=== PATIENT | male | born 1970 | race Caucasian/White ===

== ENCOUNTER → 2018-05-01 07:13 | Outpatient (CLI) | payer OTHER, SELFPAY ==
--- NOTE | 2018-05-01 | DI.MRI.S_ITS ---
PROCEDURE: MR BRAIN (IAC) WWO CON INDICATIONS: LEFT TINNITUS/SENSORINEURAL HEARING LOSS TECHNIQUE: Noncontrast sagittal T1 spin echo, axial FLAIR, axial gradient echo, axial diffusion and ADC through the brain. Axial thin-slice 3D CISS, coronal TruFISP, axial T1 spin echo with fat saturation through the internal auditory canals. After the administration of contrast, thin slice axial and coronal T1 spin echo with fat saturation through the internal auditory canals, and axial T1 spin echo with fat saturation through the brain. COMPARISON: None. FINDINGS: Image quality: Excellent. Cerebellopontine angles: No cerebellopontine angle masses. Inner ear structures appear normally formed. No suspicious enhancement in the internal auditory canal or along the course of the 7th cranial nerve. CSF spaces: Ventricles are normal in size and shape. No extra-axial fluid collections. Basal cisterns are patent. Prominent perivascular space noted in the left putamen. Brain: No intracranial bleeds or mass effects. Burnham-white matter interface is intact. No abnormal intracranial enhancement. Diffusion weighted images demonstrate no acute ischemic insults. Brainstem appears normal. Normal intravascular flow voids are present. Skull and face: Calvarial marrow signal is normal. Orbits appear normal. Sinuses: Sinuses and mastoids are clear. IMPRESSION: No evidence of vestibular schwannoma. Dictated by: Hannah Kovacs MD, PhD on 05/01/2018 at 13:45 Approved by: Hannah Kovacs MD, PhD on 05/01/2018 at 14:18
== END ==
PROVIDERS: Family Provider Physician Assistant; PCP Physician Assistant; Visit Provider Otolaryngology
DX: H93.12 Tinnitus, left ear (principal); H90.5 Unspecified sensorineural hearing loss
CPT/HCPCS: 70553; A9579

== ENCOUNTER → 2020-07-15 07:58 | Outpatient (CLI) | payer OTHER, SELFPAY ==
[2020-07-16 10:42] LABS: COVID19 Sendout Not Detected (Not Detect)
== END ==
PROVIDERS: Visit Provider Physician Assistant
DX: Z11.59 Encounter for screening for other viral diseases (principal)
CPT/HCPCS: 87635

== ENCOUNTER → 2021-01-05 08:15 | Outpatient (CLI) | payer OTHER, SELFPAY ==
--- NOTE | 2021-01-05 08:16 | DI.US.S_ITS ---
PROCEDURE: US ABDOMEN LIMITED INDICATIONS: RULE OUT RIGHT GROIN HERNIA TECHNIQUE: Real-time focused scanning was performed of the abdomen, with image documentation. COMPARISON: None. FINDINGS: Within the right groin, there is an inguinal hernia seen, which is regarded to be a direct inguinal hernia. The hernia is reducible. The neck of the hernia measures 5 x 4 mm. IMPRESSION: Fat containing right groin hernia, which is regarded to be a reducible direct inguinal hernia. Dictated by: Ramiro Prado M.D. on 01/05/2021 at 9:39 Approved by: Ramiro Prado M.D. on 01/05/2021 at 9:40
== END ==
PROVIDERS: Referring Provider Nurse Practitioner; Visit Provider Nurse Practitioner
DX: K40.90 Unilateral inguinal hernia, without obstruction or gangrene, not specified as recurrent (principal)
CPT/HCPCS: 76705

== ENCOUNTER → 2021-01-17 11:08 | Outpatient (CLI) | payer OTHER, SELFPAY ==
[2021-01-17 12:34] LABS: COVID19 -Nasal RAPID Negative (Negative)
== END ==
PROVIDERS: Visit Provider Specialist
DX: Z20.822 Contact with and (suspected) exposure to COVID-19 (principal)
CPT/HCPCS: 87635; C9803

== ENCOUNTER 2021-01-18 12:20 | Day surgery (SDC) | payer OTHER, SELFPAY ==
[2021-01-18] VITALS (9 sets, daily range): BP systolic 97–141; BP diastolic 68–97; PULSE 60–68; RESP 10–14; TEMP 36.2–36.7; O2SAT 96–100; BMI 23.7
[2021-01-18] MEDS: ACETAMINOPHEN 325 MG TABLET 975 MG PO (12:42)
[2021-01-18] MEDS: LACTATED RINGERS 1,000 ML 42 ML IV (12:43)
--- NOTE | 2021-01-18 13:21 | PM.PREOP ---
Pre-operative Note COVID-19 COVID-19 status: Negative Result date/Date tested (Pos, Neg/Pending): 01/17/21 Interval Note History & Physical reviewed/Exam performed by Physician: Yes Changes to H&P: No
[2021-01-18] MEDS: CEFAZOLIN 2 GM/100 ML FROZ.PIGGY IV (13:57)
--- NOTE | 2021-01-18 14:16 | SUR.OPER ---
Supine on padded OR bed, head on pillow, arms secured on padded arm boards at <90 degrees abduction, legs uncrossed, safety belt at thigh, tape over blanket over lower legs.
[2021-01-18] MEDS: BUPIVACAINE 0.5% (PF) VIAL 30 ML INJ (14:23)
--- NOTE | 2021-01-18 15:07 | PM.OP.1 ---
Operative Date/Time/Diagnoses Date of procedure: 01/18/21 Time of procedure: 15:08 Pre-op diagnosis: Right inguinal hernia Post-op diagnosis: same Procedure & Clinicians Procedure: Repair right inguinal hernia with plug and patch technique Same procedure as scheduled: Yes Indications: Symptomatic right inguinal hernia Surgeon: Meng Stacy Click Yes if Unassisted: Yes Anesthesia Type: General Operative Notes Findings: Indirect sac Closure Type: primary Specimen(s): none sent Prosthetic devices, grafts, tissues, transplants, or devices: Small plug and patch Estimated Blood Loss (mL): 5 Blood products transfused: none Procedure in detail: The patient was placed supine on the operating room table and underwent general LMA anesthesia. He was prepped and draped in the usual fashion. A transverse incision was made overlying the right internal ring and carried down to the level of the external oblique. The external oblique was opened parallel with its fibers through the external ring. The cord structures were elevated. The cremaster was opened proximally and search made for an indirect sac. One was found. It was from surrounding structures and opened. It had no contents. It was suture-ligated with a 2-0 silk at the level the deep epigastric vessels. Distal portion was removed and the base injected with local anesthetic. The stump was allowed to retract. Small plug was placed in the defect created by this and tacked into place with interrupted 0 Ethibond suture. The patient had a so-called lipoma of the cord which was from surrounding structures ligated at its base and the fatty portion removed.. The floor was examined and was found to be mildly weakened.. A patch was placed across the floor and tacked at the pubic tubercle, the posterior lamella of the anterior rectus sheath, the ilioinguinal ligament, and superior lateral to the cord. The opening was modified as necessary to prevent tight constriction of the cord. Sutures of 0 Tycron were used to secure the mesh. The external oblique was closed with a running 3 0 Polysorb. The subcu was closed with interrupted 3 0 Polysorb. The skin was closed with a running 4 0 Polysorb subcuticular stitch and Steri-Strips. Dressing was applied, the patient was awakened, and the patient was taken to the recovery area in good condition. Complications: none Post-operative Condition: stable Disposition: PACU
--- NOTE | 2021-01-18 15:10 | SUR.PHASEI ---
Addendum entered by Diana Plata R.N. 01/18/21 15:27: Pt arrived to PACU after general anesthesia. Oral airway in place, but needing jaw lift. Nasal trumpet inserted orally by Dr Saleem with good effect. Report from CAROL Youssef and Dr Saleem. Original Note: Pt arrived to PACU after general anesthesia. Oral airway in place, but needing jaw lift. Nasal trumpet inserted by Dr Saleem with good effect. Report from CAROL Youssef and Dr Saleem.
[2021-01-18] MEDS: OXYCODONE IR 5 MG TABLET PO ×2 (15:35→16:14)
--- NOTE | 2021-01-18 16:22 | SUR.PHASEII ---
1615 medicated for pain 4/10, difficulty moving; facial grimace. Tolerated PO well. To car in wheelchair, encouraged pillow support for deep breathing. Stable. No questions/concerns.
== END 2021-01-18 16:18 | disposition home or self-care (01) ==
PROVIDERS: Referring Provider Specialist; Visit Provider Specialist
PROC: (CPT 49505; principal; 2021-01-18 13:45)
DX: K40.90 Unilateral inguinal hernia, without obstruction or gangrene, not specified as recurrent (principal); F17.210 Nicotine dependence, cigarettes, uncomplicated
CPT/HCPCS: 49505; 82962; C1781; J0690; J2250; J2704; J3010

== ENCOUNTER 2021-06-24 13:37 | Emergency (ER) | payer OTHER, SELFPAY ==
[2021-06-24 13:46] VITALS: BP 173/97; PULSE 67; RESP 16; TEMP 36.3; O2SAT 100; BMI 24.5
--- NOTE | 2021-06-24 14:40 | ED.GENADULT ---
HPI - General Adult General Chief complaint: Environmental Exposure Stated complaint: diving and might have taken a skin hit Time Seen by Provider: 06/24/21 13:50 History of Present Illness HPI narrative: 50M daily smoker without significant medical history presents with the chief complaint of abdominal itching rash that started on Saturday. Patient denies any headache or blurred vision. He denies any chest pain or shortness of breath. He denies any joint pain. He did have some tingling in his fingers that has since resolved. 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 He states that he was using compressed air and went to a maximum depth of 60 ft for about 1 hour at a time and made 3-4 dyes daily. He states that he was on the surface for about 1-1.5 hours in between dives and was meticulous about his sent techniques. He has had brief episodes of the surface type pain of his abdomen on and Saturday but is not having symptoms today. He has spoken with both Lucy haines and MARIANNE and is now here for evaluation. Related Data Previous Rx's Medication Instructions Recorded oxycodone-acetaminophen 5 mg-325 See Rx Instructions .ROUTE 01/18/21 mg tablet (Percocet) .COMPLEX PRN #15 tab Allergies Allergy/AdvReac Type Severity Reaction Status Date / Time No Known Drug Allergies Allergy Verified 04/13/21 11:12 Review of Systems Review of Systems Narrative: GENERAL: Denies chills, fatigue, malaise, fever, sweats. HEENT: Denies sinus pain, ear pain, sore throat, difficulty swallowing, dizziness. RESPIRATORY: Denies dyspnea, cough, wheezing, hemoptysis, sputum. CARDIOVASCULAR: Denies chest pain, palpitations, orthopnea, edema, GASTROINTESTINAL: Denies nausea, vomiting, abdominal pain, diarrhea, constipation, melena. : Denies dysuria, frequency, incontinence, hematuria, urinary retention. MUSCULOSKELETAL: denies weakness, joint pain, or bony pain SKIN: see HPI NEUROLOGIC: Denies weakness, headache, numbness, change in speech, confusion, seizures, incoordination. PSYCHIATRIC: No concerning psychosocial issues. 12 point review of systems is negative except for those stated above Patient History Medical History Current smoker Umbilical hernia with obstruction Unilateral inguinal hernia without obstruction Surgical History Hx of umbilical hernia repair Family History Father Prostate cancer Daughter Diabetes mellitus Social History marital status: household members: spouse and children occupational status: employed Smoking Status: Current every day smoker Smoking Status: Current every day smoker alcohol intake frequency: holidays/special occasions only Substance Use Type: marijuana Exam Narrative Exam Narrative: GENERAL: [50] year old patient appears stated age. Well-developed patient, in mild distress. HEAD: Atraumatic. Normocephalic. EYES: Pupils equal round and reactive. Extraocular motions intact. No scleral icterus. No injection or drainage. ENT: Nose without bleeding, purulent drainage. Throat without erythema, tonsillar hypertrophy or exudate. Airway patent. NECK: Trachea midline. Non tender CARDIOVASCULAR: Regular rate and rhythm without murmurs, gallops, or rubs. RESPIRATORY: Clear to auscultation. Breath sounds equal bilaterally. No wheezes, rales, or rhonchi. GASTROINTESTINAL: Abdomen soft, non-tender, nondistended. EXTREMITIES: No edema or joint tenderness. BACK: Nontender without deformity or crepitance. No flank tenderness. NEURO: AOx3. SKIN: No rash or erythema of visible areas Initial Vital Signs Initial Vital Signs: Vital Signs Temperature 97.4 F L 06/24/21 13:46 Pulse Rate 67 06/24/21 13:46 Respiratory Rate 16 06/24/21 13:46 Blood Pressure 173/97 H 06/24/21 13:46 Pulse Oximetry 100 06/24/21 13:46 Course Orders Ordered: Discontinued Medications Sodium Chloride (Normal Saline 0.9%) 1,000 mls @ 1,000 mls/hr IV BOLUS ONE Stop: 06/24/21 16:07 Last Infusion: 06/24/21 15:50 Dose: 0 mls/hr Documented by: Admin: 06/24/21 15:15 Dose: 1,000 mls/hr Documented by: JEFFREY Consultations Consultation #1: Patient's history and physical exam are [facility]. Given lack of ongoing symptoms and multiple days since the event there is no indication for transfer at this point time. 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 His symptoms have since resolved and he presents today without any complaints. There is no indication for transfer or acute treatment with hyperbaric dive. Myself and dive question whether not there may be some element of a tight-fitting wet Yarel[place] playing a role with the skin irritation given how soon with his diving the symptoms started, prior to any significant nitrogen load. That being said when discussing risk and benefit with the patient the recommendation was strongly given that he not dive for 1 month. Patient was able to verbalize his understanding. Return precautions given and questions answered to his apparent satisfaction Discharge Plan Departure Patient Disposition: Home Clinical Impression: Diver disease Qualifiers: Encounter type: initial encounter Qualified Code(s): T70.3XXA - Caisson disease [decompression sickness], initial encounter Instructions: DI for Decompression Sickness Activity Restrictions/Additional Instructions: *You have been diagnosed with [diet related illness] *What to do: NO DIVING FOR 1 MONTH *Please continue to take your regular medications as directed. [ ] New medication prescriptions sent to your pharmacy: [ ] [ ] New medication written as a paper prescription [x ] No new medications given *Please follow up with your primary care provider in 2-3 days, call for an appointment. Let them know you were seen in the Emergency Department and that we ask that you be seen in follow up. We will electronically transmit a record of today's note if your PCP is in our system *If you do not have a primary care provider please contact the [facility] Resource line at [phone]. They will ask some questions about your medical history and help get you set up with a doctor in the community. *Return to Emergency Department if you should have any new, worsening or concerning symptoms, such as [fever greater than 101 F, shaking chills, worsening pain, persistent vomiting or other bothersome symptoms] Prescriptions: No Action oxycodone-acetaminophen [Percocet] 5-325 mg tablet See Rx Instructions .ROUTE .COMPLEX PRN (Reason: painful procedure) Qty: 15 RF: 0 Referrals: [facility] [Outside]
[2021-06-24 15:03] VITALS: PULSE 61; O2SAT 100
[2021-06-24] MEDS: SODIUM CHLORIDE 0.9% 1,000 ML 1000 ML IV (15:15)
--- NOTE | 2021-06-24 15:21 | PC.NURSE ---
Addendum entered by Amie Garcia R.N. 06/24/21 15:35: Note written by Carolin Randall RN. Original Note: Pt reports long hx of smoking and that SOB is consistent and same as always. Reports sputum production that is the consistent and same as always, white expectoration. Denies chest pain. Evaluated skin for c/o rash this week, no rash present.
[2021-06-24 15:25] VITALS: PULSE 70; O2SAT 100
[2021-06-24 15:26] VITALS: BP 163/98; PULSE 65; O2SAT 100
[2021-06-24 15:30] VITALS: BP 163/88; PULSE 55; O2SAT 100
== END 2021-06-24 15:50 | disposition home or self-care (01) ==
PROVIDERS: Emergency Provider Emergency Medicine
DX: T70.3XXA Caisson disease [decompression sickness], initial encounter (principal); R21 Rash and other nonspecific skin eruption
CPT/HCPCS: 96360; 99283; 99284

== ENCOUNTER → 2021-07-20 15:37 | Outpatient (CLI) | payer OTHER, SELFPAY ==
[2021-07-20 16:17] LABS: Add Manual Diff / Slide Review NO; Basophils Absolute Auto 0 /uL (0-100); Basophils Percent Auto 0.5 % (0-2); Eosinophils Absolute Auto 400 /uL (0-450); Eosinophils Percent Auto 6.4 % (2-4); Hematocrit 44.7 % (41-53); Hemoglobin 15.3 g/dL (13.5-17.5); Lymphocytes Absolute Auto 1800 /uL (1100-4500); Lymphocytes Percent Auto 25.1 % (25-40); Mean Corpuscular HGB Conc 34.3 % (30-36); Mean Corpuscular Hemoglobin 31.7 PG (26-34); Mean Corpuscular Volume 92.6 fL (80-100); Monocytes Absolute Auto 700 /uL (0-900); Monocytes Percent Auto 9.9 % (3-14); Neutrophils Absolute Auto 4100 /uL (1500-7000); Neutrophils Percent Auto 58.1 % (50-75); Platelet Count 208 X10^3/uL (150-400); Red Blood Cell Count 4.83 X10^6/uL (4.5-5.9)
[2021-07-20 16:23] LABS: Alanine Aminotransferase 19 IU/L (<50); Albumin 4.5 g/dL (3.5-5.0); Albumin Globulin Ratio 1.8 (1.0-2.8); Alkaline Phosphatase 58 U/L (38-126); Aspartate Aminotransferase 24 IU/L (17-59); BUN Creatinine Ratio 17.1 (6-22); Bilirubin Total 0.4 mg/dL (0.2-1.3); Blood Urea Nitrogen 14 mg/dL (9-20); Calcium 9.2 mg/dL (8.4-10.2); Carbon Dioxide 27 mmol/L (22-32); Chloride 104 mmol/L (98-107); Cholesterol 186 mg/dL (140-199); Estimated Glomerular Filt Rate > 60.0 mL/min (>60); Globulin 2.5 g/dL (1.7-4.1); Glucose 111 mg/dL (70-100); HDL Cholesterol 48 mg/dL (40-60); HEMOLYSIS < 15 (0-50); LDL Cholesterol Calculated 108 mg/dL (<100); Potassium 4.4 mmol/L (3.4-5.1); Sodium 138 mmol/L (137-145); Triglycerides 148 mg/dL (35-150)
[2021-07-20 16:25] LABS: Hemoglobin A1C% w Est Avg Glu 5.2 % (4.0-6.0)
[2021-07-20 17:27] LABS: Creatinine Urine Random 208.2 mg/dL
[2021-07-20 17:36] LABS: Microalbumin Urine Random < 0.6 mg/dL (0-1.6)
== END ==
PROVIDERS: PCP Family Medicine; Referring Provider Family Medicine; Visit Provider Family Medicine
DX: T70.3XXA Caisson disease [decompression sickness], initial encounter (principal); F17.200 Nicotine dependence, unspecified, uncomplicated
CPT/HCPCS: 36415; 80053; 80061; 82043; 82570; 83036; 85025

== ENCOUNTER → 2021-07-20 15:47 | Outpatient (CLI) | payer OTHER, SELFPAY ==
--- NOTE | 2021-07-20 15:47 | DI.RAD.S_ITS ---
PROCEDURE: XR CHEST 2V INDICATIONS: wheezing, shortness of breath TECHNIQUE: 2 views of the chest were acquired. COMPARISON: None. FINDINGS: Surgical changes and devices: None. Lungs and pleura: Lungs are clear. No pleural effusions or pneumothorax. Mediastinum: Mediastinal contours are normal. Heart size is normal. Bones and chest wall: No suspicious bony abnormalities. Soft tissues appear unremarkable. There is rightward curvature of the thoracolumbar spine. IMPRESSION: No acute cardiopulmonary abnormality. Dictated by: Adiel Mcgarry M.D. on 07/20/2021 at 16:15 Approved by: Adiel Mcgarry M.D. on 07/20/2021 at 16:16
== END ==
PROVIDERS: PCP Family Medicine; Referring Provider Family Medicine; Visit Provider Family Medicine
DX: R06.02 Shortness of breath (principal); R06.2 Wheezing; F17.200 Nicotine dependence, unspecified, uncomplicated; T70.3XXA Caisson disease [decompression sickness], initial encounter
CPT/HCPCS: 36415; 71046; 80053; 80061; 82043; 82570; 83036; 85025

== ENCOUNTER → 2021-11-24 14:44 | Outpatient (CLI) | payer OTHER, SELFPAY ==
[2021-11-24 18:08] LABS: Influenza A - CEPHEID Flu A NEGATIVE (NEGATIVE); Influenza B - CEPHEID Flu B NEGATIVE (NEGATIVE)
[2021-11-24 18:10] LABS: COVID19 -Nasal RAPID Negative (Negative)
== END ==
PROVIDERS: PCP Family Medicine; Visit Provider Family Medicine
DX: Z20.822 Contact with and (suspected) exposure to COVID-19 (principal); R06.02 Shortness of breath; R06.2 Wheezing
CPT/HCPCS: 87502; 87635

== ENCOUNTER → 2022-11-06 06:53 | Outpatient (CLI) | payer OTHER, SELFPAY ==
--- NOTE | 2022-11-06 06:55 | DI.US.S_ITS ---
PROCEDURE: US ABDOMEN LIMITED INDICATIONS: EVAL L GROIN/INGINAL PAIN/RULE OUT HERNIA TECHNIQUE: Real-time focused scanning was performed of the abdomen, with image documentation. COMPARISON: [facility], , US ABDOMEN LIMITED, 01/05/2021, 8:34. FINDINGS: Ultrasound was performed in the area of interest in the left groin. No hernia or mass is identified. No enlarged inguinal lymph nodes. IMPRESSION: No abnormalities are visualized on ultrasound. If clinical symptoms persist CT is suggested for further evaluation. Dictated by: Kunal Kong M.D. on 11/06/2022 at 11:59 Approved by: Kunal Kong M.D. on 11/06/2022 at 12:00
== END ==
PROVIDERS: PCP Family Medicine; Referring Provider Registered Nurse Diabetes Educator; Visit Provider Registered Nurse Diabetes Educator
DX: S39.013A Strain of muscle, fascia and tendon of pelvis, initial encounter (principal); R10.32 Left lower quadrant pain; X58.XXXA Exposure to other specified factors, initial encounter
CPT/HCPCS: 76705

== ENCOUNTER → 2022-11-21 08:05 | Outpatient (CLI) | payer OTHER, SELFPAY ==
[2022-11-21 08:40] LABS: Add Manual Diff / Slide Review NO; Basophils Absolute Auto 0 /uL (0-100); Basophils Percent Auto 0.5 % (0-2); Eosinophils Absolute Auto 400 /uL (0-450); Eosinophils Percent Auto 4.2 % (2-4); Hemoglobin 16.4 g/dL (13.5-17.5); Lymphocytes Absolute Auto 1600 /uL (1100-4500); Lymphocytes Percent Auto 16.8 % (25-40); Mean Corpuscular HGB Conc 33.6 % (30-36); Mean Corpuscular Hemoglobin 31.4 PG (26-34); Mean Corpuscular Volume 93.5 fL (80-100); Monocytes Absolute Auto 1000 /uL (0-900); Monocytes Percent Auto 10.4 % (3-14); Neutrophils Absolute Auto 6500 /uL (1500-7000); Neutrophils Percent Auto 68.1 % (50-75); Platelet Count 211 X10^3/uL (150-400); Red Blood Cell Count 5.24 X10^6/uL (4.5-5.9); Red Cell Distribution Width 13.1 % (11.6-14.8); White Blood Cell Count 9.6 X10^3/uL (4.5-11.0)
[2022-11-21 09:18] LABS: Alanine Aminotransferase 22 IU/L (<50); Albumin 4.4 g/dL (3.5-5.0); Albumin Globulin Ratio 1.4 (1.0-2.8); Alkaline Phosphatase 65 U/L (38-126); Aspartate Aminotransferase 21 IU/L (17-59); BUN Creatinine Ratio 13.8 (6-22); Bilirubin Total 0.5 mg/dL (0.2-1.3); Blood Urea Nitrogen 13 mg/dL (9-20); Calcium 9.4 mg/dL (8.4-10.2); Carbon Dioxide 31 mmol/L (22-32); Chloride 101 mmol/L (98-107); Cholesterol 218 mg/dL (140-199); Estimated Glomerular Filt Rate > 60 mL/min (>60); Globulin 3.1 g/dL (1.7-4.1); Glucose 86 mg/dL (70-100); HDL Cholesterol 45 mg/dL (40-60); HEMOLYSIS < 15 (0-50); LDL Cholesterol Calculated 152 mg/dL (<100); Potassium 4.9 mmol/L (3.4-5.1); Sodium 141 mmol/L (137-145); Total Protein 7.5 g/dL (6.3-8.2); Triglycerides 104 mg/dL (35-150)
[2022-11-21 09:47] LABS: TSH w/ Reflex to FT4 1.93 uIU/mL (0.47-4.68)
[2022-11-21 09:48] LABS: Prostate Specific Antigen Scrn 0.915 ng/mL (0.1-4.0)
[2022-11-21 10:10] LABS: Creatinine Urine Random 222.2 mg/dL
[2022-11-21 10:14] LABS: Microalbumi Creatinin Ratio Ur 3.6 ug/mg CR (<30); Microalbumin Urine Random 0.8 mg/dL (0-1.6)
== END ==
PROVIDERS: PCP Family Medicine; Referring Provider Family Medicine; Visit Provider Family Medicine
DX: E78.5 Hyperlipidemia, unspecified (principal); F17.200 Nicotine dependence, unspecified, uncomplicated; R73.9 Hyperglycemia, unspecified; Z12.5 Encounter for screening for malignant neoplasm of prostate
CPT/HCPCS: 36415; 80053; 80061; 82043; 82570; 84443; 85025; G0103

== ENCOUNTER → 2022-12-03 11:38 | Outpatient (CLI) | payer OTHER, SELFPAY ==
[2022-12-03 13:30] LABS: COVID19 -Nasal RAPID Negative (Negative)
== END ==
PROVIDERS: PCP Family Medicine; Visit Provider Surgery
DX: Z01.812 Encounter for preprocedural laboratory examination (principal); Z20.822 Contact with and (suspected) exposure to COVID-19
CPT/HCPCS: 87635; C9803

== ENCOUNTER 2022-12-04 06:45 | Day surgery (SDC) | payer OTHER, SELFPAY ==
[2022-12-03 07:32] VITALS: BMI 24.4
[2022-12-04] VITALS (7 sets, daily range): BP systolic 90–161; BP diastolic 60–102; PULSE 64–77; RESP 11–14; TEMP 36.1–36.6; O2SAT 92–100; BMI 23.1
[2022-12-04] MEDS: LACTATED RINGERS 1,000 ML 42 ML IV ×2 (07:14→09:00)
--- NOTE | 2022-12-04 07:52 | PM.PREOP ---
Pre-operative Note COVID-19 COVID-19 status: Negative Result date/Date tested (Pos, Neg/Pending): 12/03/22 Interval Note History & Physical reviewed/Exam performed by Physician: Yes Changes to H&P: No ASA Class (for procedural sedation): II
[2022-12-04] MEDS: CEFAZOLIN 2 GM/100 ML PREMIX 100 ML IV (08:03)
--- NOTE | 2022-12-04 08:43 | SUR.OPER ---
Addendum entered by Mayela Bailey R.N. 12/04/22 09:02: Patients glasses placed in black glass case with patient label and placed in patients belongings bag in preop area. Original Note: Supine on padded OR bed, head on pillow, arms secured on padded arm boards at <90 degrees abduction, legs uncrossed, safety belt at thigh, tape over blanket over lower legs. Gel pad under bilateral heels.
[2022-12-04] MEDS: BUPIVACAINE 0.5% W/ EPI (PF) 30 ML VIAL INJ (08:47)
--- NOTE | 2022-12-04 09:28 | P.OP_ITS ---
Operative Date/Time/Diagnoses Date of procedure: 12/04/22 Time of procedure: 09:28 Pre-op diagnosis: Left inguinal hernia Post-op diagnosis: same Procedure & Clinicians Procedure: Open left inguinal hernia repair with mesh Same procedure as scheduled: Yes Surgeon: Jorge Luis Carroll Anesthesia Type: General Operative Notes Procedure in detail: Preoperative antibiotic was administered. The patient was brought to the operating room and placed on the table in supine position general anesthesia was induced via LMA. The left groin was prepped and draped in the normal fashion and a time-out was performed. Roughly 10 mL of local anesthetic were injected into the skin and subcutaneous adipose tissue over the left groin. A 5 cm incision was made over the left inguinal canal. Dissection was carried down through the subcutaneous adipose tissue. A bridging vein was cauterized. We exposed the external oblique aponeurosis in the direction of the fibers. Additional local was injected deep to the aponeurosis. A 15 blade scalpel was used to silvia the external oblique aponeurosis. Metzenbaum scissors were used to carefully open the aponeurosis in the direction of the fibers taking care not to injure the underlying ilioinguinal nerve which was well seen and protected. We completely exposed the inguinal canal. The cord was dissected free from the inguinal ligament and floor of the inguinal canal and the external oblique aponeurosis was dissected off of the internal oblique. We encircled the cord with a [place] drain for retraction. There was an indirect hernia and a cord lipoma. These were dissected off the cord and reduced back into the abdomen. We placed a polypropylene mesh over the inguinal canal floor. The mesh was secured with multiple interrupted 3-0 Prolene sutures to the pubic tubercle and shelving edge of the inguinal ligament as well as to the conjoint tendon medially. We overlapped the tails to recreate an internal ring and secured the medial tail to the inguinal ligament with additional sutures. We injected some more local into the fatty tissue in the inguinal canal and cord. Finally, we removed the [place] drain and closed the external oblique fascia with a running 3-0 Vicryl suture. Skin was closed with interrupted 3-0 Vicryl dermal sutures and a running 4 Monocryl subcuticular stitch. EBL 5 mL The patient was awakened and brought to recovery room. Post-operative Condition: stable Disposition: PACU
== END 2022-12-04 10:22 | disposition home or self-care (01) ==
PROVIDERS: PCP Family Medicine; Referring Provider Surgery; Visit Provider Surgery
PROC: (CPT 49505; principal; 2022-12-04 07:45)
DX: K40.90 Unilateral inguinal hernia, without obstruction or gangrene, not specified as recurrent (principal); D17.6 Benign lipomatous neoplasm of spermatic cord
CPT/HCPCS: 49505; J0690; J1885; J2250; J2704; J3010

== ENCOUNTER 2023-04-25 16:06 | Emergency (ER) | payer OTHER, SELFPAY ==
[2023-04-25 16:20] VITALS: BP 125/92; PULSE 91; RESP 18; TEMP 36.7; O2SAT 97; BMI 23.7
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
--- NOTE | 2023-04-25 16:31 | DI.CT.S_ITS ---
PROCEDURE: CT CERVICAL SPINE WO CON INDICATIONS: Trauma to top of head with neck flexion injury TECHNIQUE: Noncontrast 3 mm thick sections acquired from the skull base to the T4 level. Sagittal and coronal reformats were then constructed. For radiation dose reduction, the following was used: automated exposure control, adjustment of mA and/or kV according to patient size. COMPARISON: None. FINDINGS: Image quality: Excellent. Bones: No fractures or dislocations. Visualized superior ribs are intact. The temporomandibular joints have degenerative changes. Disc space narrowing of multiple levels, most prominent at C5-6 and C6-7. Disc osteophytes at these levels cause moderate bilateral foraminal stenosis and mild central canal stenosis. Soft tissues: Prevertebral soft tissues are normal in thickness. No paravertebral hematomas. No apical pneumothoraces. IMPRESSION: No acute abnormality of the cervical spine. Dictated by: Adiel Mcgarry M.D. on 04/25/2023 at 16:54 Approved by: Adiel Mcgarry M.D. on 04/25/2023 at 16:55
--- NOTE | 2023-04-25 16:31 | DI.CT.S_ITS ---
PROCEDURE: CT HEAD/BRAIN WO CON INDICATIONS: Trauma to top of head with neck flexion injury TECHNIQUE: Noncontrast 4.5 mm thick angled axial sections acquired from the foramen magnum to the vertex, with coronal and sagittal reformats. For radiation dose reduction, the following was used: automated exposure control, adjustment of mA and/or kV according to patient size. COMPARISON: None. FINDINGS: Image quality: Excellent. CSF spaces: Basal cisterns are patent. No extra-axial fluid collections. Ventricles are normal in size and shape. Brain: No midline shift. No intracranial masses or hemorrhage. Burnham-white matter interface is normal. Skull and face: Calvarium and visualized facial bones are intact, without suspicious lesions. Sinuses: Visualized sinuses and mastoids are clear. IMPRESSION: No acute intracranial abnormality. Dictated by: Adiel Mcgarry M.D. on 04/25/2023 at 16:52 Approved by: Adiel Mcgarry M.D. on 04/25/2023 at 16:53
[2023-04-25] MEDS: ONDANSETRON 4 MG ODT SL (16:45)
[2023-04-25] MEDS: ACETAMINOPHEN 325 MG TABLET 975 MG PO (16:46)
[2023-04-25] MEDS: BACITRACIN OINT 0.9 GM PCKT 1 APPLIC TOP (16:47)
[2023-04-25] MEDS: KETOROLAC 30 MG/ML VIAL 15 MG IM (16:48)
[2023-04-25] MEDS: LIDOCAINE 2% W/EPI INJ 20 ML INJ (16:48)
[2023-04-25] MEDS: TET,DIPH,PERTUSS(ACELL),VAC/PF 0.5 ML SYRINGE IM (16:52)
[2023-04-25 17:13] VITALS: BP 162/97; PULSE 75; RESP 18; O2SAT 98
--- NOTE | 2023-04-25 17:19 | PC.NURSE ---
pt tolerated sutures without incident.
== END 2023-04-25 17:17 | disposition home or self-care (01) ==
PROVIDERS: Emergency Provider Nurse Practitioner Critical Care Medicine; PCP Family Medicine
DX: S06.0X0A Concussion without loss of consciousness, initial encounter (principal); S01.01XA Laceration without foreign body of scalp, initial encounter; W22.8XXA Striking against or struck by other objects, initial encounter; Z23 Encounter for immunization
CPT/HCPCS: 12001; 70450; 72125; 90471; 96372; 99284; 90715; J1885

== ENCOUNTER 2023-11-08 07:59 | Day surgery (SDC) | payer OTHER, SELFPAY ==
--- NOTE | 2023-11-08 | PATH_ITS ---
[facility] Accession Number: [id number] No. of containers..01 Tissue . 01 Material submitted: . colon - DESCENDING COLON POLYP 20CM . 01 Diagnosis: Descending Colon Polyp at 20 cm: Colonic mucosa with focal mucosal hyperplasia. Negative for dysplasia or malignancy. Additional step sections examined. MRV 11/21/2023 1453 Local . 01 Electronically signed: . Ash Joseph MD, PhD, Pathologist NPI- [id number] . 01 Gross description: . DESCENDING COLON POLYP 20CM: Received in formalin is 1 fragment(s) of nj, soft tissue measuring 0.6 x 0.3 x 0.3 cm submitted entirely in 1 cassette(s) /MARIANNE 11/14/2023 1919 Local . 01 Pathologist provided ICD-10: K63.5 . 01 CPT . [id number] Performed at: 01 [facility] [address] [place] [address], [place], [place] [id number] MD Preston Kendrick MD Phone: [phone]
[2023-11-08 08:22] VITALS: BMI 23.7
[2023-11-08 08:35] VITALS: BP 129/86; PULSE 75; RESP 16; TEMP 36.3; O2SAT 99
[2023-11-08] MEDS: LACTATED RINGERS 1,000 ML 42 ML IV (08:38)
--- NOTE | 2023-11-08 09:33 | PM.HP.1 ---
History of Present Illness History of Present Illness Date Patient Seen: 11/08/23 Time Patient Seen: 09:33 Chief complaint: Colonoscopy Narrative: First colonoscopy for colon cancer screening. No family history or symptoms of concern. [facility] Medical History Strain of left inguinal muscle Current smoker Unilateral inguinal hernia without obstruction Umbilical hernia with obstruction Surgical History Hx of hernia repair (01/18/21) Hx of umbilical hernia repair Family History Father Prostate cancer Daughter Diabetes mellitus Social History marital status: household members: spouse and children occupational status: employed Smoking Status: Current every day smoker alcohol intake: current Meds Home Medications and Allergies Home Medications Medication Instructions Recorded Confirmed Type triamcinolone acetonide 0.5 % 1 applic topical TID #15 grams 07/14/22 12/03/22 Rx topical cream Allergies Allergy/AdvReac Type Severity Reaction Status Date / Time No Known Drug Allergies Allergy Verified 11/08/23 08:22 Review of Systems Review of Systems ROS: Yes All systems reviewed with the patient and are negative except as otherwise documented Exam Vital Signs (past 8 hours): - 11/08/23 08:35 Temperature 97.4 F L Pulse Rate 75 Respiratory Rate 16 Blood Pressure 129/86 Pulse Oximetry 99 Oxygen Delivery Method Room Air Oxygen Delivery Method Room Air Const General: cooperative, healthy appearing and comfortable Nutritional Appearance: average body habitus HENMT Head: normocephalic and atraumatic Ears: hearing grossly normal bilaterally Eyes Sclera: sclerae normal Neck Neck: trachea midline Resp Effort & Inspection: normal respiratory effort and able to speak in complete sentences Cardio Rate: regular rate Rhythm: regular rhythm Skin General: elasticity normal and turgor normal Neuro General: patient alert, patient awake and patient oriented x3 Cognition: normal cognition Psych Appearance: grossly normal Mental Status: mental status grossly normal Judgment: judgment good Assessment & Plan Assessment & Plan narrative: Colon cancer screening with colonoscopy and anesthesia Time Spent With Patient Time with patient: less than 30 minutes
--- NOTE | 2023-11-08 09:56 | PM.OP.COLON ---
Operative Date/Time/Diagnoses Date of procedure: 11/08/23 Time of procedure: 09:57 Pre-op diagnosis: colon cancer screening Post-op diagnosis: same Procedure & Clinicians Study performed: colonoscopy with cold forcep polypectomy Same procedure as scheduled: Yes Indications: colon cancer screening Surgeon: Gilda Zuleta Procedure Notes Procedure in detail: Preop diagnosis: Colon cancer screening Postop diagnosis: Same Operative procedure: Colonoscopy with cold forceps polypectomy Surgeon: eYssica Zuleta MD Findings: Polyp with stalk at 20 cm from the anal verge in the descending colon no diverticulosis Procedure: Patient placed in a lateral position. Rectal exam performed showing normal tone no masses. Colonoscope inserted into the rectum and advanced to ileocecal valve with minimal difficulty. Insufflation extraction scope and the above findings. Retroflex included in the rectum. Impression: Single polyp on a stalk. Proximally 3 mm at 20 cm from the anal verge in descending colon Plan: Repeat colonoscopy in 5 years Findings: polyp(s) Specimen(s): other (Single cold forceps polypectomy descending colon) Complications: none Post-procedure Recommendations: Colonoscopy in 5 years Follow up: as needed Disposition: PACU
[2023-11-08 10:00] VITALS: BP 104/75; PULSE 77; RESP 16; TEMP 36.3; O2SAT 96
[2023-11-08 10:05] VITALS: BP 103/75; PULSE 71; RESP 19; O2SAT 98
[2023-11-08 10:10] VITALS: BP 106/77; PULSE 66; RESP 20; O2SAT 100
[2023-11-08 10:15] VITALS: BP 107/76; PULSE 75; RESP 16; TEMP 37; O2SAT 100
== END 2023-11-08 10:20 | disposition home or self-care (01) ==
PROVIDERS: Surgery; PCP Family Medicine; Referring Provider Surgery; Visit Provider Surgery
PROC: 0DJD8ZZ Inspection of Lower Intestinal Tract, Via Natural or Artificial Opening Endoscopic (ICD-10-PCS; CPT 45378; principal; 2023-11-08 09:00)
DX: Z12.11 Encounter for screening for malignant neoplasm of colon (principal); K63.5 Polyp of colon
CPT/HCPCS: 45380

== ENCOUNTER → 2024-03-31 12:13 | Outpatient (CLI) | payer OTHER, SELFPAY ==
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
== END ==
PROVIDERS: PCP Family Medicine; Referring Provider Physician Assistant; Visit Provider Physician Assistant
DX: M79.641 Pain in right hand (principal)
CPT/HCPCS: 73130

== ENCOUNTER 2024-07-15 16:42 | Observation (INO) | payer BC, SELFPAY ==
[2024-07-15] VITALS (19 sets, daily range): BP systolic 119–156; BP diastolic 81–95; PULSE 56–78; RESP 15–23; TEMP 36.5; O2SAT 96–100; BMI 24.4
--- NOTE | 2024-07-15 16:50 | DI.RAD.S_ITS ---
PROCEDURE: XR CHEST 1V INDICATIONS: chest pain TECHNIQUE: One view of the chest was acquired. COMPARISON: [facility], CR, XR CHEST 2V, 07/20/2021, 15:55. FINDINGS: Surgical changes and devices: None. Lungs and pleura: Lungs are clear. No pleural effusions or pneumothorax. Mediastinum: Mediastinal contours appear normal. Heart size is normal. Bones and chest wall: No suspicious bony lesions. Overlying soft tissues appear unremarkable. IMPRESSION: No acute cardiopulmonary pathology. Dictated by: Hollis Hall M.D. on 07/15/2024 at 18:08 Approved by: Hollis Hall M.D. on 07/15/2024 at 18:08
--- NOTE | 2024-07-15 16:54 | EKG_ITS ---
[address] [id number] [address] [address] Test Date: 2024-07-15 Pat Name: Lang Cruz Department: Room: Gender: Male Chemical Dependency Therapist: CHANA : 1970 Requested By: Order Number: [id number] Reading MD: Omari Amaro Measurements Intervals [place] Rate: 63 P: 46 IA: 122 QRS: 43 QRSD: 88 T: 47 QT: 380 QTc: 388 Interpretive Statements Normal sinus rhythm Electronically Signed On 07-15-2024 17:36:02 PDT by Omari Amaro
[2024-07-15 17:02] LABS: Add Manual Diff / Slide Review NO; Basophils Absolute Auto 100 /uL (0-100); Basophils Percent Auto 0.7 % (0-2); Eosinophils Absolute Auto 400 /uL (0-450); Eosinophils Percent Auto 4.5 % (2-4); Hematocrit 43.1 % (41-53); Lymphocytes Absolute Auto 1800 /uL (1100-4500); Lymphocytes Percent Auto 22.3 % (25-40); Mean Corpuscular HGB Conc 34.8 % (30-36); Mean Corpuscular Hemoglobin 32.2 PG (26-34); Mean Corpuscular Volume 92.6 fL (80-100); Monocytes Absolute Auto 600 /uL (0-900); Neutrophils Absolute Auto 5100 /uL (1500-7000); Neutrophils Percent Auto 64.5 % (50-75); Platelet Count 200 X10^3/uL (150-400); Red Blood Cell Count 4.66 X10^6/uL (4.5-5.9); Red Cell Distribution Width 13.1 % (11.6-14.8); White Blood Cell Count 7.9 X10^3/uL (4.5-11.0)
--- NOTE | 2024-07-15 17:05 | ED.CHESTPAIN ---
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 He would just unloaded heavy truck with cargo yesterday when he experienced some central chest tightness described as a 5/10 pain that resolved with rest after about an hour. Today he was walking down to his both carrying a dry suit when he had recurrent episode of chest tightness that now has lasted almost 4 hours. He does not describe diaphoresis, palpitations, nausea, vomiting, diarrhea no abdominal pain. On presentation to the emergency department he is still having a tightness sensation and still rates it a 5/5 is looking for current recommendations. His plan is to go back to work scuba diving tomorrow. Related Data Previous Rx's Medication Instructions Recorded lisinopril 5 mg tablet 5 mg PO DAILY 90 days #90 tabs 07/16/24 Allergies Allergy/AdvReac Type Severity Reaction Status Date / Time No Known Drug Allergies Allergy Verified 07/31/24 10:19 Review of Systems <Saira Hinojosa MD - Last Filed: 08/06/24 04:18> Review of Systems Narrative: Pertinent positive and negative findings as per HPI Patient History <Saira Hinojosa MD - Last Filed: 08/06/24 04:18> Medical History (Updated 07/31/24 @ 14:05 by Sanchez Fernandes MD) Hypertension Strain of left inguinal muscle Current smoker Unilateral inguinal hernia without obstruction Umbilical hernia with obstruction Surgical History Hx of hernia repair (01/18/21) Hx of umbilical hernia repair Family History Father Prostate cancer Daughter Diabetes mellitus Social History marital status: household members: spouse and children lives independently: Yes occupational status: employed Smoking Status: Current every day smoker alcohol intake: current substance use type: marijuana Smoking Status: Current every day smoker alcohol intake frequency: holidays/special occasions only Substance Use Type: marijuana Exam <Saira Hinojosa MD - Last Filed: 08/06/24 04:18> Initial Vital Signs Initial Vital Signs: Vital Signs Pulse Rate 76 07/15/24 16:50 Pulse Oximetry 97 07/15/24 16:50 General: Healthy appearing, in no acute distress. Able to give a complete and coherent history. Well-nourished well-developed HEENT: Moist mucous membranes, normal sclera with reactive pupils, Neck: No JVD, supple Respiratory: Lungs are clear to auscultation, no wheezing no rales no rhonchi. Full and symmetrical air movement Cardiac: Regular rate and rhythm no murmurs no bruits Abdomen: Soft, nontender, good bowel tones, no flank pain Skin: Warm and dry, no rashes Neurologic: Grossly neurologically intact with no obvious asymmetries or abnormalities Extremities: No trauma, well perfused Psych: Cooperative, appropriate insight and affect <Kushal Santos DO - Last Filed: 07/15/24 20:24> Initial Vital Signs Initial Vital Signs: Vital Signs Pulse Rate 76 07/15/24 16:50 Pulse Oximetry 97 07/15/24 16:50 Course <Saira Hinojosa MD - Last Filed: 08/06/24 04:18> Orders Ordered: Discontinued Medications Acetaminophen (Acetaminophen 325 Mg Tablet) 650 mg PO Q6H PRN PRN Reason: Fever/Mild Pain (1-3) Hydrocodone Bitart/Acetaminophen (Hydrocodone/Acet 5/325 Tablet) 1 tab PO Q4H PRN PRN Reason: Pain, Moderate (4-6) Al Hydrox/Mg Hydrox/Simethicone (Mag Hydrox/Alum/Simeth 30 Ml Udc) 30 ml PO Q6HR PRN PRN Reason: Dyspepsia Alprazolam (Alprazolam 0.25 Mg Tablet) 0.25 mg PO Q6H PRN PRN Reason: Anxiety Aspirin (Aspirin 81 Mg Chew Tab) 324 mg PO NOW ONE Stop: 07/15/24 17:18 Last Admin: 07/15/24 17:27 Dose: 324 mg Documented By: Enoxaparin Sodium (Enoxaparin 40 Mg/0.4 Ml Syringe) 40 mg SUBCUT DAILY ALEAH Last Admin: 07/16/24 08:34 Dose: 40 mg Documented By: LDV Morphine Sulfate (Morphine 4 Mg/Ml Inj) 3 mg IV Q2HR PRN PRN Reason: severe pain (7-10) Naloxone HCl (Naloxone 0.4 Mg/Ml Vial) 0.2 mg IV Q2MIN PRN PRN Reason: Opiate Reversal Nicotine (Nicotine 21 Mg Patch) 21 mg TOP NOW ONE Stop: 07/15/24 20:46 Last Admin: 07/15/24 20:53 Dose: 21 mg Documented By: Nitroglycerin (Nitroglycerin 0.4 Mg Sl Tab) 0.4 mg SL [id number] PRN PRN Reason: Chest Pain Last Admin: 07/15/24 17:42 Dose: 0.4 mg Documented By: Admin: 07/15/24 17:36 Dose: 0.4 mg Documented By: Admin: 07/15/24 17:27 Dose: 0.4 mg Documented By: Ondansetron HCl (Ondansetron 4 Mg/2 Ml Inj) 4 mg IV Q8HR PRN PRN Reason: Nausea And Vomiting Vital Signs Vital signs: Vital Signs - 8 hr 07/15/24 16:50 07/15/24 16:54 07/15/24 17:00 Temperature 97.7 F Pulse Rate 76 78 70 Respiratory Rate 18 15 Blood Pressure 132/88 Pulse Oximetry 97 99 96 Oxygen Delivery Method Room Air 07/15/24 17:00 07/15/24 17:29 07/15/24 17:29 Temperature Pulse Rate 70 Respiratory Rate 22 Blood Pressure 124/86 156/94 H Pulse Oximetry 96 Oxygen Delivery Method 07/15/24 17:30 07/15/24 17:31 07/15/24 17:31 Temperature Pulse Rate 71 77 Respiratory Rate 22 19 Blood Pressure 130/95 H Pulse Oximetry 96 96 Oxygen Delivery Method 07/15/24 17:35 07/15/24 17:35 07/15/24 17:40 Temperature Pulse Rate 70 70 Respiratory Rate 21 Blood Pressure 123/81 Pulse Oximetry 96 97 Oxygen Delivery Method 07/15/24 17:40 07/15/24 17:45 07/15/24 17:45 Temperature Pulse Rate 69 Respiratory Rate 18 Blood Pressure 128/84 124/82 Pulse Oximetry 97 Oxygen Delivery Method 07/15/24 17:50 07/15/24 17:50 07/15/24 17:55 Temperature Pulse Rate 66 Respiratory Rate Blood Pressure 126/85 123/86 Pulse Oximetry 99 Oxygen Delivery Method 07/15/24 17:55 07/15/24 18:00 07/15/24 18:00 Temperature Pulse Rate 63 61 Respiratory Rate 21 21 Blood Pressure 119/83 Pulse Oximetry 99 100 Oxygen Delivery Method 07/15/24 18:05 07/15/24 18:05 07/15/24 18:29 Temperature Pulse Rate 62 59 L Respiratory Rate 21 Blood Pressure 122/82 Pulse Oximetry 100 97 Oxygen Delivery Method 07/15/24 18:29 07/15/24 18:30 07/15/24 18:30 Temperature Pulse Rate 61 Respiratory Rate 23 Blood Pressure 125/88 124/87 Pulse Oximetry 97 Oxygen Delivery Method 07/15/24 19:00 07/15/24 19:00 07/15/24 19:30 Temperature Pulse Rate 61 60 Respiratory Rate 23 Blood Pressure 124/87 Pulse Oximetry 98 97 Oxygen Delivery Method 07/15/24 19:30 07/15/24 20:00 07/15/24 20:00 Temperature Pulse Rate 56 L Respiratory Rate Blood Pressure 127/85 130/85 Pulse Oximetry 97 Oxygen Delivery Method <Kushal Santos, - Last Filed: 07/15/24 20:24> Orders Ordered: Discontinued Medications Acetaminophen (Acetaminophen 325 Mg Tablet) 650 mg PO Q6H PRN PRN Reason: Fever/Mild Pain (1-3) Hydrocodone Bitart/Acetaminophen (Hydrocodone/Acet 5/325 Tablet) 1 tab PO Q4H PRN PRN Reason: Pain, Moderate (4-6) Al Hydrox/Mg Hydrox/Simethicone (Mag Hydrox/Alum/Simeth 30 Ml Udc) 30 ml PO Q6HR PRN PRN Reason: Dyspepsia Alprazolam (Alprazolam 0.25 Mg Tablet) 0.25 mg PO Q6H PRN PRN Reason: Anxiety Aspirin (Aspirin 81 Mg Chew Tab) 324 mg PO NOW ONE Stop: 07/15/24 17:18 Last Admin: 07/15/24 17:27 Dose: 324 mg Documented By: Enoxaparin Sodium (Enoxaparin 40 Mg/0.4 Ml Syringe) 40 mg SUBCUT DAILY ALEAH Last Admin: 07/16/24 08:34 Dose: 40 mg Documented By: LDV Morphine Sulfate (Morphine 4 Mg/Ml Inj) 3 mg IV Q2HR PRN PRN Reason: severe pain (7-10) Naloxone HCl (Naloxone 0.4 Mg/Ml Vial) 0.2 mg IV Q2MIN PRN PRN Reason: Opiate Reversal Nicotine (Nicotine 21 Mg Patch) 21 mg TOP NOW ONE Stop: 07/15/24 20:46 Last Admin: 07/15/24 20:53 Dose: 21 mg Documented By: Nitroglycerin (Nitroglycerin 0.4 Mg Sl Tab) 0.4 mg SL [id number] PRN PRN Reason: Chest Pain Last Admin: 07/15/24 17:42 Dose: 0.4 mg Documented By: Admin: 07/15/24 17:36 Dose: 0.4 mg Documented By: Admin: 07/15/24 17:27 Dose: 0.4 mg Documented By: Ondansetron HCl (Ondansetron 4 Mg/2 Ml Inj) 4 mg IV Q8HR PRN PRN Reason: Nausea And Vomiting Vital Signs Vital signs: Vital Signs - 8 hr 07/15/24 16:50 07/15/24 16:54 07/15/24 17:00 Temperature 97.7 F Pulse Rate 76 78 70 Respiratory Rate 18 15 Blood Pressure 132/88 Pulse Oximetry 97 99 96 Oxygen Delivery Method Room Air 07/15/24 17:00 07/15/24 17:29 07/15/24 17:29 Temperature Pulse Rate 70 Respiratory Rate 22 Blood Pressure 124/86 156/94 H Pulse Oximetry 96 Oxygen Delivery Method 07/15/24 17:30 07/15/24 17:31 07/15/24 17:31 Temperature Pulse Rate 71 77 Respiratory Rate 22 19 Blood Pressure 130/95 H Pulse Oximetry 96 96 Oxygen Delivery Method 07/15/24 17:35 07/15/24 17:35 07/15/24 17:40 Temperature Pulse Rate 70 70 Respiratory Rate 21 Blood Pressure 123/81 Pulse Oximetry 96 97 Oxygen Delivery Method 07/15/24 17:40 07/15/24 17:45 07/15/24 17:45 Temperature Pulse Rate 69 Respiratory Rate 18 Blood Pressure 128/84 124/82 Pulse Oximetry 97 Oxygen Delivery Method 07/15/24 17:50 07/15/24 17:50 07/15/24 17:55 Temperature Pulse Rate 66 Respiratory Rate Blood Pressure 126/85 123/86 Pulse Oximetry 99 Oxygen Delivery Method 07/15/24 17:55 07/15/24 18:00 07/15/24 18:00 Temperature Pulse Rate 63 61 Respiratory Rate 21 21 Blood Pressure 119/83 Pulse Oximetry 99 100 Oxygen Delivery Method 07/15/24 18:05 07/15/24 18:05 07/15/24 18:29 Temperature Pulse Rate 62 59 L Respiratory Rate 21 Blood Pressure 122/82 Pulse Oximetry 100 97 Oxygen Delivery Method 07/15/24 18:29 07/15/24 18:30 07/15/24 18:30 Temperature Pulse Rate 61 Respiratory Rate 23 Blood Pressure 125/88 124/87 Pulse Oximetry 97 Oxygen Delivery Method 07/15/24 19:00 07/15/24 19:00 07/15/24 19:30 Temperature Pulse Rate 61 60 Respiratory Rate 23 Blood Pressure 124/87 Pulse Oximetry 98 97 Oxygen Delivery Method 07/15/24 19:30 07/15/24 20:00 07/15/24 20:00 Temperature Pulse Rate 56 L Respiratory Rate Blood Pressure 127/85 130/85 Pulse Oximetry 97 Oxygen Delivery Method MDM - Chest Pain <Saira Hinojosa MD - Last Filed: 08/06/24 04:18> Lab Data 07/16/24 05:34 07/16/24 05:34 Labs: Lab Results 07/15/24 07/15/24 Range/Units 16:55 19:04 WBC 7.9 (4.5-11.0) X10^3/uL RBC 4.66 (4.5-5.9) X10^6/uL Hgb 15.0 (13.5-17.5) g/dL Hct 43.1 (41-53) % MCV 92.6 (80-100) fL MCH 32.2 (26-34) PG MCHC 34.8 (30-36) % RDW 13.1 (11.6-14.8) % Plt Count 200 (150-400) X10^3/uL Neut % (Auto) 64.5 (50-75) % Lymph % (Auto) 22.3 L (25-40) % [place] % (Auto) 8.0 (3-14) % Eos % (Auto) 4.5 H (2-4) % Baso % (Auto) 0.7 (0-2) % Neut # (Auto) 5100 (7850-6598) /uL Lymph # (Auto) 1800 (7612-1981) /uL [place] # (Auto) 600 (0-900) /uL Eos # (Auto) 400 (0-450) /uL Baso # (Auto) 100 (0-100) /uL PT 11.8 (9.4-12.5) SECONDS INR 1.0 (0.9-1.3) APTT 32 (25.1-36.5) SECONDS Sodium 135 L (137-145) mmol/L Potassium 4.3 (3.4-5.1) mmol/L Chloride 104 (98-107) mmol/L Carbon Dioxide 26 (22-32) mmol/L BUN 15 (9-20) mg/dL Creatinine 0.80 (0.66-1.25) mg/dL Estimated GFR > 60 (>60) mL/min BUN/Creatinine Ratio 18.8 (6-22) Glucose 95 (70-100) mg/dL Calcium 8.6 (8.4-10.2) mg/dL Magnesium 1.9 (1.6-2.3) mg/dL Total Bilirubin 0.4 (0.2-1.3) mg/dL AST 24 (17-59) IU/L ALT 23 (<50) IU/L Alkaline Phosphatase 64 (38-126) U/L Total Creatine Kinase 122 98 (55-170) U/L Troponin I < 0.012 < 0.012 (0.01-0.034) ng/mL NT-Pro-B Natriuret Pep 25 (<125) pg/mL Total Protein 6.9 (6.3-8.2) g/dL Albumin 3.9 (3.5-5.0) g/dL Globulin 3.0 (1.7-4.1) g/dL Albumin/Globulin Ratio 1.3 (1.0-2.8) Lipase 84 (23-300) U/L MDM Narrative Medical decision making narrative: CC: Chest pain Complicating co-morbidities: Smoker, borderline hypertension, borderline hyperlipidemia Data collected from: patient Differential considered: Acute coronary syndrome, unstable angina, pneumothorax, upper respiratory infection Exam documented above, pertinent findings include: Exam is entirely benign, chest pain is not reproducible with palpation Lab Test results independently reviewed as above. Pertinent findings: Initial chemistries are reassuring CBC is unremarkable Independently reviewed EKG: EKG shows sinus rhythm at a rate of 63 with no acute ischemic changes, normal intervals, normal axis Imaging studies independently reviewed: Consultations: Treatments: Re-evaluations: Discussion: <Kushal Santos DO - Last Filed: 07/15/24 20:24> Lab Data Labs: Lab Results 07/15/24 07/15/24 Range/Units 16:55 19:04 WBC 7.9 (4.5-11.0) X10^3/uL RBC 4.66 (4.5-5.9) X10^6/uL Hgb 15.0 (13.5-17.5) g/dL Hct 43.1 (41-53) % MCV 92.6 (80-100) fL MCH 32.2 (26-34) PG MCHC 34.8 (30-36) % RDW 13.1 (11.6-14.8) % Plt Count 200 (150-400) X10^3/uL Neut % (Auto) 64.5 (50-75) % Lymph % (Auto) 22.3 L (25-40) % [place] % (Auto) 8.0 (3-14) % Eos % (Auto) 4.5 H (2-4) % Baso % (Auto) 0.7 (0-2) % Neut # (Auto) 5100 (9000-8049) /uL Lymph # (Auto) 1800 (0803-1676) /uL [place] # (Auto) 600 (0-900) /uL Eos # (Auto) 400 (0-450) /uL Baso # (Auto) 100 (0-100) /uL PT 11.8 (9.4-12.5) SECONDS INR 1.0 (0.9-1.3) APTT 32 (25.1-36.5) SECONDS Sodium 135 L (137-145) mmol/L Potassium 4.3 (3.4-5.1) mmol/L Chloride 104 (98-107) mmol/L Carbon Dioxide 26 (22-32) mmol/L BUN 15 (9-20) mg/dL Creatinine 0.80 (0.66-1.25) mg/dL Estimated GFR > 60 (>60) mL/min BUN/Creatinine Ratio 18.8 (6-22) Glucose 95 (70-100) mg/dL Calcium 8.6 (8.4-10.2) mg/dL Magnesium 1.9 (1.6-2.3) mg/dL Total Bilirubin 0.4 (0.2-1.3) mg/dL AST 24 (17-59) IU/L ALT 23 (<50) IU/L Alkaline Phosphatase 64 (38-126) U/L Total Creatine Kinase 122 98 (55-170) U/L Troponin I < 0.012 < 0.012 (0.01-0.034) ng/mL NT-Pro-B Natriuret Pep 25 (<125) pg/mL Total Protein 6.9 (6.3-8.2) g/dL Albumin 3.9 (3.5-5.0) g/dL Globulin 3.0 (1.7-4.1) g/dL Albumin/Globulin Ratio 1.3 (1.0-2.8) Lipase 84 (23-300) U/L MDM Narrative Medical decision making narrative: CC: Chest pain Complicating co-morbidities: Smoker, borderline hypertension, borderline hyperlipidemia Data collected from: patient Differential considered: Acute coronary syndrome, unstable angina, pneumothorax, upper respiratory infection Exam documented above, pertinent findings include: Exam is entirely benign, chest pain is not reproducible with palpation Lab Test results independently reviewed as above. Pertinent findings: Initial chemistries are reassuring CBC is unremarkable Independently reviewed EKG: EKG shows sinus rhythm at a rate of 63 with no acute ischemic changes, normal intervals, normal axis Imaging studies independently reviewed: Consultations: Treatments: Re-evaluations: Discussion: Dr Santos: Received turned over. Review patient's history and physical exam. Has had 2- troponins. Is now chest pain-free after nitroglycerin. Has a nonischemic EKG. Has a heart score of 5. Does have risk factors for coronary artery disease. Patient has never had risk stratification testing. Suspect that admission to the hospital for further evaluation and treatment would be warranted. Discussed the case with Dr. Ravi hospitalist on-call who will admit. Discussed the need for admission with the patient. He expressed understanding and agreement as well. Discharge Plan Departure Patient Disposition: Admitted as Observation Clinical Impression: Chest pain Qualifiers: Chest pain type: unspecified Qualified Code(s): R07.9 - Chest pain, unspecified Admit Date/Time: 07/15/24 20:11 Admit Provider: Bola Ferrara
[2024-07-15 17:10] LABS: Prothrombin Time 11.8 SECONDS (9.4-12.5)
[2024-07-15 17:13] LABS: PTT Partial Thromboplastin Tim 32 SECONDS (25.1-36.5)
[2024-07-15 17:19] LABS: Alanine Aminotransferase 23 IU/L (<50); Albumin 3.9 g/dL (3.5-5.0); Albumin Globulin Ratio 1.3 (1.0-2.8); Alkaline Phosphatase 64 U/L (38-126); Aspartate Aminotransferase 24 IU/L (17-59); BUN Creatinine Ratio 18.8 (6-22); Bilirubin Total 0.4 mg/dL (0.2-1.3); Blood Urea Nitrogen 15 mg/dL (9-20); Calcium 8.6 mg/dL (8.4-10.2); Carbon Dioxide 26 mmol/L (22-32); Chloride 104 mmol/L (98-107); Creatine Kinase 122 U/L (55-170); Estimated Glomerular Filt Rate > 60 mL/min (>60); Glucose 95 mg/dL (70-100); HEMOLYSIS 16 (0-50); Lipase 84 U/L (23-300); Magnesium 1.9 mg/dL (1.6-2.3); Potassium 4.3 mmol/L (3.4-5.1); Sodium 135 mmol/L (137-145); Total Protein 6.9 g/dL (6.3-8.2)
[2024-07-15] MEDS: ASPIRIN 81 MG CHEW TAB 324 MG PO (17:27)
[2024-07-15] MEDS: NITROGLYCERIN 0.4 MG SL TAB SL ×3 (17:27→17:42)
[2024-07-15 17:30] LABS: NT-proBNP (BNP-Adult 18+) 25 pg/mL (<125); Troponin I < 0.012 ng/mL (0.01-0.034)
--- NOTE | 2024-07-15 17:49 | PC.NURSE ---
Pt reports complete relief of chest discomfort/chest pressure after nitro x3. Provider made aware. VSS.
[2024-07-15 19:27] LABS: Creatine Kinase 98 U/L (55-170)
[2024-07-15 19:40] LABS: Troponin I < 0.012 ng/mL (0.01-0.034)
[2024-07-15] MEDS: NICOTINE 21 MG PATCH TOP (20:53)
--- NOTE | 2024-07-15 21:09 | DI.ECHO.S_ITS ---
[facility] : : [address] : : [place] : : [id number] : : Phone: [phone] Echocardiogram Report + :Name: LEONARDO RUBY Study Date: 07/16/2024 Height: 73 in : :[facility] ReadingLocation: Weight: 185 lb : : Gender: Male BSA: 2.1 m2 : :: 1970 Age: 53 yrs BP: 147/78 mmHg: :Reason For Study: CHEST PAIN : :Ordering Physician: REYNOLD ALMODOVAR, : :GINA HUMMEL Performed By: Jessica Vargas : :Referring: GINA TINOCO MD : + Interpretation Summary The ejection fraction is estimated to be 55-60%. Diastolic parameters suggest probable normal left ventricular diastolic function and normal filling pressures. The right ventricle is normal in size and function. No significant valvular abnormalities. Pulmonary artery pressures cannot be estimated because of the lack of a measurable TR jet velocity but the IVC suggests a CVP of around 3 mmHg. Procedure: A two-dimensional transthoracic echocardiogram with color flow and Doppler was performed. The study quality was technically adequate. There is no prior echocardiogram noted for this patient. The patient was in 62-77 during the exam. Left Ventricle: The left ventricle is normal in size and wall thickness. The ejection fraction is estimated to be 55-60%. Diastolic parameters suggest probable normal left ventricular diastolic function and normal filling pressures. Right Ventricle: The right ventricle is normal in size and function. Atria: The left atrial size is normal. Right atrial size is normal. There is no Doppler evidence for an interatrial shunt. Mitral Valve: The mitral valve is normal in structure and function. There is trace mitral regurgitation. Aortic Valve: The aortic valve is trileaflet. The aortic valve opens well. There is no aortic valve stenosis. No aortic regurgitation is present. Tricuspid Valve: The tricuspid valve is normal in structure and function. There is trace tricuspid regurgitation. Pulmonary artery pressures cannot be estimated because of the lack of a measurable TR jet velocity but the IVC suggests a CVP of around 3 mmHg. Pulmonic Valve: The pulmonic valve leaflets are thin and pliable; valve motion is normal. There is no pulmonic valvular regurgitation. Great Vessels: The aortic root is normal size. The dimensions of the ascending aorta are normal. The IVC is of normal diameter and collapses greater than 50% with a sniff. This suggests a low right atrial pressure of 3 mm Hg. Pericardium/ Pleura There is no pericardial effusion. There is no pleural effusion. MMode/2D Measurements & Calculations LVIDd: 4.9 cm LVOT diam: 2.4 cm LVIDs: 3.1 cm Ao root diam: 3.4 cm FS: 35.6 % asc Aorta Diam: 3.4 cm EPSS: 0.58 cm Ao Arch Diam (Prox Trans): 2.7 cm IVSd: 0.75 cm LVPWd: 0.98 cm LV womack. diameter/BSA (cm/m^2): 2.3 LV sys. diameter/BSA (cm/m^2): 1.5 LA A2 area: 21.0 cm2 RA long axis: 4.8 cm LA A4 area: 16.8 cm2 RA area: 13.6 cm2 LA length (vol): 4.9 cm RA vol: 32.7 ml LA vol: 61.4 ml RA : 15.7 ml/m2 LA vol index: 29.5 ml/m2 IVC diam: 2.0 cm RVD1 (basal): 3.6 cm TAPSE: 2.8 cm Doppler Measurements & Calculations Ao V2 max: 120.4 cm/sec LVOT Max Viktor: 105.9 cm/sec Ao V2 mean: 88.4 cm/sec LV V1 max P.5 mmHg Ao max P.8 mmHg LV V1 VTI: 20.6 cm Ao mean P.3 mmHg ETRRA(I,D): 3.6 cm2 Ao V2 VTI: 26.2 cm TERRA(V,D): 4.0 cm2 sev ratio: 0.78 TERRA indexed to BSA (cm^2/m^2): 1.7 MV E max viktor: 64.8 cm/sec PA V2 max: 76.8 cm/sec MV A max viktor: 55.6 cm/sec PA V2 mean: 57.9 cm/sec MV E/A: 1.2 PA mean P.4 mmHg Med Peak E' Viktor: 9.5 cm/sec PA pr(Accel): 24.2 mmHg E/E' med: 6.8 Lat Peak E' Viktor: 12.4 cm/sec E/E' lat: 5.2 E/e' average: 6.0 MV dec time: 0.24 sec SV(LVOT): 94.3 ml Reading Physician:09:25 AM
--- NOTE | 2024-07-15 23:50 | PM.HP.1 ---
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 He was not diaphoretic, nauseated or short of breath. He was feeling anxious. He had several similar episodes in the past 1-2 years but not that long. He never had cardiac workup. In the ED w/o evidence of ACS with non-ischemic EKG and flat troponins. Placed in observation after he had relief from pain with NTG. [facility] Medical History Strain of left inguinal muscle Current smoker Unilateral inguinal hernia without obstruction Umbilical hernia with obstruction Surgical History Hx of hernia repair (01/18/21) Hx of umbilical hernia repair Family History Father Prostate cancer Daughter Diabetes mellitus Social History marital status: household members: spouse and children lives independently: Yes occupational status: employed Smoking Status: Current every day smoker alcohol intake: current substance use type: marijuana Meds Home Medications and Allergies Home Medications Medication Instructions Recorded Confirmed Type No Known Home Medications 07/15/24 07/15/24 History Allergies Allergy/AdvReac Type Severity Reaction Status Date / Time No Known Drug Allergies Allergy Verified 07/15/24 16:57 Review of Systems Constitutional Comments: w/o fever or chills Cardiovascular Comments: several episodes of chest tightness over the past 1-2 years Respiratory Comments: w/o cough, shortness of breath or pleursy Gastrointestinal Comments: w/o complaints Genitourinary Comments: w/o complaints Musculoskeletal Comments: w/o myalgia Exam Vital Signs (past 8 hours): - 07/15/24 16:50 07/15/24 16:54 07/15/24 17:00 Temperature 97.7 F Pulse Rate 76 78 70 Respiratory Rate 18 15 Blood Pressure 132/88 Pulse Oximetry 97 99 96 Oxygen Delivery Method Room Air 07/15/24 17:00 07/15/24 17:29 07/15/24 17:29 Temperature Pulse Rate 70 Respiratory Rate 22 Blood Pressure 124/86 156/94 H Pulse Oximetry 96 Oxygen Delivery Method 07/15/24 17:30 07/15/24 17:31 07/15/24 17:31 Temperature Pulse Rate 71 77 Respiratory Rate 22 19 Blood Pressure 130/95 H Pulse Oximetry 96 96 Oxygen Delivery Method 07/15/24 17:35 07/15/24 17:35 07/15/24 17:40 Temperature Pulse Rate 70 70 Respiratory Rate 21 Blood Pressure 123/81 Pulse Oximetry 96 97 Oxygen Delivery Method 07/15/24 17:40 07/15/24 17:45 07/15/24 17:45 Temperature Pulse Rate 69 Respiratory Rate 18 Blood Pressure 128/84 124/82 Pulse Oximetry 97 Oxygen Delivery Method 07/15/24 17:50 07/15/24 17:50 07/15/24 17:55 Temperature Pulse Rate 66 Respiratory Rate Blood Pressure 126/85 123/86 Pulse Oximetry 99 Oxygen Delivery Method 07/15/24 17:55 07/15/24 18:00 07/15/24 18:00 Temperature Pulse Rate 63 61 Respiratory Rate 21 21 Blood Pressure 119/83 Pulse Oximetry 99 100 Oxygen Delivery Method 07/15/24 18:05 07/15/24 18:05 07/15/24 18:29 Temperature Pulse Rate 62 59 L Respiratory Rate 21 Blood Pressure 122/82 Pulse Oximetry 100 97 Oxygen Delivery Method 07/15/24 18:29 07/15/24 18:30 07/15/24 18:30 Temperature Pulse Rate 61 Respiratory Rate 23 Blood Pressure 125/88 124/87 Pulse Oximetry 97 Oxygen Delivery Method 07/15/24 19:00 07/15/24 19:00 07/15/24 19:30 Temperature Pulse Rate 61 60 Respiratory Rate 23 Blood Pressure 124/87 Pulse Oximetry 98 97 Oxygen Delivery Method 07/15/24 19:30 07/15/24 20:00 07/15/24 20:00 Temperature Pulse Rate 56 L Respiratory Rate Blood Pressure 127/85 130/85 Pulse Oximetry 97 Oxygen Delivery Method 07/15/24 20:30 07/15/24 20:30 07/15/24 21:16 Temperature Pulse Rate 58 L Respiratory Rate 23 Blood Pressure 143/93 H Pulse Oximetry 98 Oxygen Delivery Method Room Air Oxygen Delivery Method Room Air Const Other: In no distress, at bedside HENMT Other: normocephalic Neck Other: supple Resp Other: normal respiratory effort Cardio Other: RRR Extrem Other: w/o swelling Psych Other: mild anxiety, lucid Objective ECG Impression: NSR w/o ischemic changes Labs 07/15/24 16:55 07/15/24 16:55 Labs: Laboratory Results - last 24 hr 07/15/24 07/15/24 16:55 19:04 WBC 7.9 RBC 4.66 Hgb 15.0 Hct 43.1 MCV 92.6 MCH 32.2 MCHC 34.8 RDW 13.1 Plt Count 200 Neut % (Auto) 64.5 Lymph % (Auto) 22.3 L [place] % (Auto) 8.0 Eos % (Auto) 4.5 H Baso % (Auto) 0.7 Neut # (Auto) 5100 Lymph # (Auto) 1800 [place] # (Auto) 600 Eos # (Auto) 400 Baso # (Auto) 100 PT 11.8 INR 1.0 APTT 32 Sodium 135 L Potassium 4.3 Chloride 104 Carbon Dioxide 26 BUN 15 Creatinine 0.80 Estimated GFR > 60 BUN/Creatinine Ratio 18.8 Glucose 95 Calcium 8.6 Magnesium 1.9 Total Bilirubin 0.4 AST 24 ALT 23 Alkaline Phosphatase 64 Total Creatine Kinase 122 98 Troponin I < 0.012 < 0.012 NT-Pro-B Natriuret Pep 25 Total Protein 6.9 Albumin 3.9 Globulin 3.0 Albumin/Globulin Ratio 1.3 Lipase 84 Assessment & Plan Assessment and plan (1) Chest pain: Status: Acute (2) Current smoker: Status: Acute Assessment & Plan narrative: Chest Pain - has several risk factors for CAD, borderline HLD and HTN, smoking - placed in observation on telemetry, reported palpitations - had ASA and NTG - echocardiogram, fasting lipids, A1C and TSH pending - prn Xanax for anxiety Smoker - nicotine patch DVT prophylaxis - Lovenox Time-Based Coding :: [TOTAL MINUTES] spent with patient and on the chart (including review of chart, obtaining history, exam, reviewing outside data, placing orders, documenting exam and treatment plan, and counseling patient) on [DATE].
[2024-07-16] VITALS: BP 141/89; PULSE 58; RESP 18; TEMP 36.7; O2SAT 99
[2024-07-16 04:00] VITALS: BP 147/78; PULSE 56; RESP 18; TEMP 36.6; O2SAT 98
[2024-07-16 05:53] LABS: Add Manual Diff / Slide Review NO; Basophils Absolute Auto 0 /uL (0-100); Basophils Percent Auto 0.7 % (0-2); Eosinophils Absolute Auto 400 /uL (0-450); Eosinophils Percent Auto 5.6 % (2-4); Hematocrit 43.3 % (41-53); Hemoglobin 14.7 g/dL (13.5-17.5); Lymphocytes Absolute Auto 1600 /uL (1100-4500); Lymphocytes Percent Auto 23.1 % (25-40); Mean Corpuscular Hemoglobin 31.8 PG (26-34); Mean Corpuscular Volume 93.6 fL (80-100); Monocytes Absolute Auto 700 /uL (0-900); Monocytes Percent Auto 9.6 % (3-14); Neutrophils Absolute Auto 4400 /uL (1500-7000); Platelet Count 176 X10^3/uL (150-400); Red Blood Cell Count 4.62 X10^6/uL (4.5-5.9); White Blood Cell Count 7.1 X10^3/uL (4.5-11.0)
[2024-07-16 06:23] LABS: BUN Creatinine Ratio 20.8 (6-22); Blood Urea Nitrogen 16 mg/dL (9-20); Calcium 8.7 mg/dL (8.4-10.2); Carbon Dioxide 23 mmol/L (22-32); Chloride 108 mmol/L (98-107); Cholesterol 170 mg/dL (140-199); Estimated Glomerular Filt Rate > 60 mL/min (>60); Glucose 111 mg/dL (70-100); HDL Cholesterol 33 mg/dL (40-60); HEMOLYSIS 43 (0-50); Hemoglobin A1C% w Est Avg Glu 5.2 % (4.0-6.0); LDL Cholesterol Calculated 82 mg/dL (<100); Potassium 4.2 mmol/L (3.4-5.1); Sodium 139 mmol/L (137-145); Triglycerides 276 mg/dL (35-150)
[2024-07-16 06:54] LABS: Thyroid Stimulating Hormone 1.87 uIU/mL (0.47-4.68)
[2024-07-16 08:00] VITALS: BP 140/97; PULSE 73; RESP 16; TEMP 37.1; O2SAT 97
--- NOTE | 2024-07-16 08:11 | DI.NM.S_ITS ---
PROCEDURE: NM EXERCISE TREADMILL NON NUC COMPARISON: None. INDICATIONS: chest pain FINDINGS: Total exercise time was 10 minutes 6 seconds. Test was terminated secondary to fatigue. Maximal heart rate obtained is 172 bpm which is 104% of max perceived heart rate. Maximum blood pressure was 200/[place] [address]. Maximum METS is 12.8. No ischemic changes noted. No arrhythmias present. No chest pains voiced. Normal heart rate with hypertensive blood pressure response to exercise. IMPRESSION: 1. Negative exercise treadmill stress test in terms of ischemia. 2. Good exercise tolerance. 3. Hypertensive response to exercise. Dictated by: Oliver Hall M.D. on 07/16/2024 at 12:49 Approved by: Oliver Hall M.D. on 07/16/2024 at 12:51
[2024-07-16] MEDS: ENOXAPARIN 40 MG/0.4 ML SYRINGE SUBCUT (08:34)
[2024-07-16 12:00] VITALS: BP 136/92; PULSE 72; RESP 16; TEMP 36.8; O2SAT 97
--- NOTE | 2024-07-16 13:45 | P.DS_ITS ---
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 He was not diaphoretic, nauseated or short of breath. He was feeling anxious. He had several similar episodes in the past 1-2 years but not that long. He never had cardiac workup. In the ED w/o evidence of ACS with non-ischemic EKG and flat troponins. Placed in observation after he had relief from pain with NTG. Discharge Providers Provider Date of admission: 07/15/24 20:11 Discharge Date: 07/16/24 Primary care physician: Sanchez Fernandes MD Discharge provider: Cisco Orr DO Summary Hospital Course Discharge Diagnosis: 1. Chest pain 2. HTN, new diagnosis 3. tobacco use Hospital Course: This is a 53 year old male with PMH of tobacco use who presented with chest pain in the setting of intermediate risk HEART score. He underwent treadmill EKG stress testing which was normal. His BP was mildly elevated and lifestyle interventions were discussed. These included smoking cessation, diet, and exercise. He did elect to trial lisinopril for elevated BP while here after discussion. He also endorsed night snoring. Outpatient sleep evaluation is recommended for possible [place]. Recommend PCP follow up in the next couple of weeks for BP check, possible sleep clinic referral, and continued outpatient evaluation of chest pain if ongoing after unremarkable EKG stress test. Time Spent with Patient Time spent: Greater than 30 minutes Exam Vital Signs (past 8 hours): - 07/16/24 08:00 07/16/24 12:00 Temperature 98.7 F 98.2 F Pulse Rate 73 72 Respiratory Rate 16 16 Blood Pressure 140/97 H 136/92 H Pulse Oximetry 97 97 Oxygen Delivery Method Room Air Oxygen Flow Rate 0 Const Other: In no distress HENMT Other: normocephalic Neck Other: supple Resp Other: normal respiratory effort Cardio Other: RRR Extrem Other: w/o swelling Objective Labs 07/16/24 05:34 07/16/24 05:34 Labs: Laboratory Results - last 24 hr 07/15/24 07/15/2407/16/24 16:55 19:04 05:34 WBC 7.9 7.1 RBC 4.66 4.62 Hgb 15.0 14.7 Hct 43.1 43.3 MCV 92.6 93.6 MCH 32.2 31.8 MCHC 34.8 34.0 RDW 13.1 13.0 Plt Count 200 176 Neut % (Auto) 64.5 61.0 Lymph % (Auto) 22.3 L 23.1 L [place] % (Auto) 8.0 9.6 Eos % (Auto) 4.5 H 5.6 H Baso % (Auto) 0.7 0.7 Neut # (Auto) 5100 4400 Lymph # (Auto) 1800 1600 [place] # (Auto) 600 700 Eos # (Auto) 400 400 Baso # (Auto) 100 0 PT 11.8 INR 1.0 APTT 32 Sodium 135 L 139 Potassium 4.3 4.2 Chloride 104 108 H Carbon Dioxide 26 23 BUN 15 16 Creatinine 0.80 0.77 Estimated GFR > 60 > 60 BUN/Creatinine Ratio 18.8 20.8 Glucose 95 111 H Hemoglobin A1c 5.2 Calcium 8.6 8.7 Magnesium 1.9 Total Bilirubin 0.4 AST 24 ALT 23 Alkaline Phosphatase 64 Total Creatine Kinase 122 98 Troponin I < 0.012 < 0.012 NT-Pro-B Natriuret Pep 25 Total Protein 6.9 Albumin 3.9 Globulin 3.0 Albumin/Globulin Ratio 1.3 Triglycerides 276 H Cholesterol 170 LDL Cholesterol, Calc 82 HDL Cholesterol 33 L Lipase 84 TSH 1.87 PFSH Medical History Strain of left inguinal muscle Current smoker Unilateral inguinal hernia without obstruction Umbilical hernia with obstruction Surgical History Hx of hernia repair (01/18/21) Hx of umbilical hernia repair Family History Father Prostate cancer Daughter Diabetes mellitus Social History marital status: household members: spouse and children lives independently: Yes occupational status: employed Smoking Status: Current every day smoker alcohol intake: current substance use type: marijuana Discharge Plan Discharge Plan Patient Disposition: Home Provider Discharge Comment: You were admitted to the hospital with chest pain. EKG treadmill testing was normal. Echocardiogram was unremarkable. Recommend lifestyle interventions focused on BP reduction (diet, reduce caffeine, and smoking cessation) as well as possible sleep study. You did elect to start a BP medication. Please check in with PCP for a follow up in the next few weeks. Discharge orders & Medications Prescriptions: New lisinopril 5 mg tablet 5 mg PO DAILY 90 Days Qty: 90 0RF Follow up/Referrals: Sanchez Fernandes MD [Primary Care Provider] - Diet/Activity/Treatments Diet: Diet as Tolerated and Regular Diet comment: As tolerated Activity: As tolerated Visit Report/Discharge Packet Stand Alone Forms: Patient Portal/API, Stroke Signs & Symptoms Discharge Data Primary Care Provider: Sanchez Fernandes Attending Provider: Bola Ferrara Admit Date/Time: 07/15/24 20:11
--- NOTE | 2024-07-16 15:11 | PC.NURSE ---
Discharge Note Patient A&O, VSS, RA, no complaints of pain/discomfort. Discharge packet reviewed with patient, all questions/concerns addressed. PIV/TELE discontinued. Patient able to dress self and pack all belongings. Patient walked down to [facility] by nursing staff.
== END 2024-07-16 15:00 | disposition home or self-care (01) ==
LOC: ED 20:11 → AC 20:12
PROVIDERS: Emergency Medicine; Admitting Provider Internal Medicine; Emergency Provider Emergency Medicine; PCP Family Medicine; Visit Provider Internal Medicine
DX: R07.9 Chest pain, unspecified (principal); F17.200 Nicotine dependence, unspecified, uncomplicated; I10 Essential (primary) hypertension
CPT/HCPCS: 36415; 71045; 80048; 80053; 80061; 82550; 83036; 83690; 83735; 83880; 84443; 84484; 85025; 85610; 85730; 93005; 93017; 93306; 96372; 99284; G0378; J1650

== ENCOUNTER → 2024-08-21 08:52 | Outpatient (CLI) | payer BC, SELFPAY ==
[2024-07-15 21:16] VITALS: BMI 24.4
--- NOTE | 2024-08-21 09:00 | DI.CT.S_ITS ---
PROCEDURE: CT LUNG LOW DOSE SCREENING INDICATIONS: Current every day smoker TECHNIQUE: Noncontrast 2.0-2.5 mm thick sections acquired from the pulmonary apices to the posterior costophrenic angles. 7 mm thick axial MIP, and 5 mm coronal and sagittal reformats were then acquired. For radiation dose reduction, the following was used: automated exposure control, adjustment of mA and/or kV according to patient size. COMPARISON: [facility], CR, XR CHEST 1V, 07/15/2024, 17:15. FINDINGS: Image quality: Diagnostic. Lower Neck: No enlarged lymph nodes. Thyroid: No thyroid nodules which require sonographic follow up, per consensus guidelines. Axillae: No enlarged lymph nodes. Chest Wall: Unremarkable. Bones: Unremarkable. Lungs and Pleura: No pneumothorax or pleural effusions. No consolidations. 3 mm juxta fissural nodule on the right series 3 image 61. Juxta fissural right anterior nodule measuring 4 mm series 3, image 66. Juxt[place] fissural right lower lobe nodule series 3, image 83 measuring 3 mm. Heart: Heart size is normal. No pericardial effusion. Thoracic Vessels: The aorta and pulmonary arteries demonstrate normal size. Mediastinum and [place]: No enlarged lymph nodes. Esophagus: No wall thickening. Mild hiatal hernia. Upper Abdomen: Visualized upper abdomen solid organs and bowel loops appear normal. IMPRESSION: Scattered subcentimeter pulmonary nodules largest measuring 4 mm. No priors. LUNG-RADS 2; continued annual screening, if eligible. Clinically Significant Non-pulmonary Findings: None. Dictated by: Gladys Rose M.D. on 08/21/2024 at 15:59 Approved by: Gladys Rose M.D. on 08/21/2024 at 16:03
== END ==
PROVIDERS: PCP Family Medicine; Referring Provider Family Medicine; Visit Provider Family Medicine
DX: Z12.2 Encounter for screening for malignant neoplasm of respiratory organs (principal); F17.210 Nicotine dependence, cigarettes, uncomplicated; R91.8 Other nonspecific abnormal finding of lung field
CPT/HCPCS: 71271

== ENCOUNTER → 2024-10-14 10:55 | Outpatient (CLI) | payer BC, SELFPAY ==
[2024-07-15 21:16] VITALS: BMI 24.4
--- NOTE | 2024-10-14 10:56 | DI.RAD.S_ITS ---
PROCEDURE: XR HAND RT MIN 3V INDICATIONS: R pinky pain, primarily at MCP joint TECHNIQUE: 3 views of the hand(s) acquired. COMPARISON: [facility], CR, XR HAND RT MIN 3V, 03/31/2024, 12:14. FINDINGS: Bones: No fractures or dislocations. Carpal bones are normally aligned. No suspicious bony lesions. Soft tissues: No suspicious soft tissue calcifications. IMPRESSION: No acute osseous abnormality. If pain persists with conservative management, consider repeat x-ray in 10-14 days or cross-sectional imaging. Dictated by: Kirk Medina M.D. on 10/14/2024 at 11:34 Approved by: Kirk Medina M.D. on 10/14/2024 at 11:35
== END ==
PROVIDERS: PCP Family Medicine; Referring Provider Physician Assistant Medical; Visit Provider Physician Assistant Medical
DX: M79.641 Pain in right hand (principal)
CPT/HCPCS: 73130

== ENCOUNTER 2025-02-22 16:18 | Emergency (ER) | payer BC, SELFPAY ==
[2024-07-15 21:16] VITALS: BMI 24.4
[2025-02-22] VITALS (8 sets, daily range): BP systolic 140–156; BP diastolic 83–92; PULSE 59–71; RESP 14–17; TEMP 36.3–36.5; O2SAT 97–100; BMI 25.0
--- NOTE | 2025-02-22 16:29 | DI.RAD.S_ITS ---
PROCEDURE: XR CHEST 1V INDICATIONS: altered mental status TECHNIQUE: One view of the chest was acquired. COMPARISON: [facility], CR, XR CHEST 1V, 07/15/2024, 17:15. FINDINGS: Surgical changes and devices: None. Lungs and pleura: Lungs are clear. No pleural effusions or pneumothorax. Mediastinum: Mediastinal contours appear normal. Heart size is normal. Bones and chest wall: No suspicious bony lesions. Overlying soft tissues appear unremarkable. IMPRESSION: No acute cardiothoracic process. Dictated by: Jony Finn M.D. on 02/22/2025 at 16:57 Approved by: Jony Finn M.D. on 02/22/2025 at 16:58
--- NOTE | 2025-02-22 17:02 | EKG_ITS ---
[address] [address] [address], [place] [address] Test Date: 2025-02-22 Pat Name: Lang Cruz Department: Room: Gender: Male Steward/Stewardess Dining Room: PATRICIO : 1970 Requested By: Order Number: [id number] Reading MD: Cisco Orr Measurements Intervals [place] Rate: 53 P: 56 [place]: 134 QRS: 32 QRSD: 98 T: 46 QT: 422 QTc: 395 Interpretive Statements Sinus bradycardia Electronically Signed On 03-01-2025 18:53:54 PDT by Cisco Orr
[2025-02-22 17:10] LABS: Add Manual Diff / Slide Review NO; Basophils Absolute Auto 100 /uL (0-100); Basophils Percent Auto 0.7 % (0-2); Eosinophils Absolute Auto 300 /uL (0-450); Eosinophils Percent Auto 4.4 % (2-4); Hematocrit 43.8 % (41-53); Hemoglobin 15.1 g/dL (13.5-17.5); Lymphocytes Absolute Auto 1900 /uL (1100-4500); Lymphocytes Percent Auto 24.4 % (25-40); Mean Corpuscular HGB Conc 34.5 % (30-36); Mean Corpuscular Volume 92.7 fL (80-100); Monocytes Absolute Auto 600 /uL (0-900); Monocytes Percent Auto 7.6 % (3-14); Neutrophils Absolute Auto 4800 /uL (1500-7000); Neutrophils Percent Auto 62.9 % (50-75); Platelet Count 217 X10^3/uL (150-400); Red Blood Cell Count 4.73 X10^6/uL (4.5-5.9); Red Cell Distribution Width 13.3 % (11.6-14.8); White Blood Cell Count 7.6 X10^3/uL (4.5-11.0)
[2025-02-22 17:15] LABS: Alanine Aminotransferase 27 IU/L (<50); Albumin 4.4 g/dL (3.5-5.0); Albumin Globulin Ratio 1.6 (1.0-2.8); Alkaline Phosphatase 59 U/L (38-126); Aspartate Aminotransferase 26 IU/L (17-59); Bilirubin Total 0.5 mg/dL (0.2-1.3); Blood Urea Nitrogen 16 mg/dL (9-20); Calcium 9.1 mg/dL (8.4-10.2); Carbon Dioxide 27 mmol/L (22-32); Chloride 103 mmol/L (98-107); Estimated Glomerular Filt Rate > 60 mL/min (>60); Globulin 2.8 g/dL (1.7-4.1); Glucose 88 mg/dL (70-100); HEMOLYSIS 19 (0-50); Sodium 139 mmol/L (137-145); Total Protein 7.2 g/dL (6.3-8.2)
--- NOTE | 2025-02-22 17:20 | DI.CT.S_ITS ---
PROCEDURE: CT HEAD/BRAIN WO CON INDICATIONS: AMS x10 days TECHNIQUE: Noncontrast 4.5 mm thick angled axial sections acquired from the foramen magnum to the vertex, with coronal and sagittal reformats. For radiation dose reduction, the following was used: automated exposure control, adjustment of mA and/or kV according to patient size. COMPARISON: None. FINDINGS: Image quality: Diagnostic. CSF spaces: Basal cisterns are patent. No extra-axial fluid collections. The ventricles are symmetric in size and shape. Brain: There is suggestion of a 4 x 3.2 x 3.9 cm hypodense mass in right frontal lobe with extensive surrounding vasogenic edema and mild mass effect on the right lateral ventricle and up to 4 mm midline shift to the left. There is cerebral volume loss for age, with resultant ventricular and sulcal prominence. There are periventricular and deep white matter chronic small vessel ischemic changes. There is intracranial internal carotid artery atherosclerosis. Skull and face: Calvarium and visualized facial bones appear intact, without suspicious lesions. Sinuses: Visualized sinuses and mastoids are clear. IMPRESSION: 1. Finding is suggestive of a 4 x 3.2 x 3.9 cm hypodense mass involving right frontal lobe with extensive surrounding vasogenic edema, mass effect on right lateral ventricle and up to 4 mm midline shift to the left. Infectious process such as intracranial abscess collection is also in the differential diagnosis. MRI of the brain without and with contrast can be done for further evaluation 2. No evidence of acute intracranial bleed. Dictated by: Hollis Hall M.D. on 02/22/2025 at 17:46 Approved by: Hollis Hall M.D. on 02/22/2025 at 17:49
--- NOTE | 2025-02-22 17:42 | PC.NURSE ---
Pt arrived to ED with because has been having significant changes in personality, according to . reports that pt is normally very outgoing and high strung. Approximately 10 days ago, pt started to act extremely relaxed and like he doesn't have a care in the world. Pt states that he has most recently enjoyed staring off into space and finds himself getting lost in time. Pt a&ox4.
[2025-02-22 17:45] LABS: Ammonia (NH3) < 9 umol/L (9-30)
[2025-02-22 17:59] LABS: Ictotest Urine Positive (Negative)
[2025-02-22 18:00] LABS: UR Morphine/Opiate cutoff 300 Negative (Negative); Ur Creatinine Normal (Normal); Ur Specific Gravity Normal (Normal); Urine Amphetamines Negative (Negative); Urine Barbiturates Negative (Negative); Urine Benzodiazepines Negative (Negative); Urine Cocaine Negative (Negative); Urine MDMA Negative (Negative); Urine Methadone Negative (Negative); Urine Methamphetamines Negative (Negative); Urine Oxycodone Negative (Negative); Urine Phencyclidine Negative (Negative); Urine Tetrahydrocannabinol Negative (Negative); Urine Tricyclic Antidepressant Negative (Negative); Urine pH Normal (Normal)
--- NOTE | 2025-02-22 18:43 | ED.NEUROSD ---
HPI - Neuro Symptoms/Deficit <Tyrell Lopez, DO - Last Filed: 02/22/25 21:01> General Chief Complaint: Neuro Symptoms/Deficit Stated Complaint: sent by PCP for stroke protocal Time Seen by Provider: 02/22/25 18:43 Source: patient Mode of arrival: Ambulatory History of Present Illness HPI Narrative: 54-year-old gentleman history of hypertension not on any blood pressure medicine presents today with the with sinus pressure, disorientation confusion weakness for 10 days now. Per the he has a pretty high strong sharmila person and he is very ?and ?chill which is not his typical baseline he has no energy and his per his had it has a delay in responses to answers. Denies trauma, blurred vision, changes in speech, weakness in the extremity or gait disturbance. On Anticoagulants: No Related Data Previous Rx's Medication Instructions Recorded lisinopril 5 mg tablet 5 mg PO DAILY #90 tabs 12/14/24 amoxicillin 875 mg-potassium 1 tab PO BID #14 tabs 02/20/25 clavulanate 125 mg tablet Allergies Allergy/AdvReac Type Severity Reaction Status Date / Time No Known Drug Allergies Allergy Verified 02/20/25 18:25 Review of Systems <Tyrell Lopez, DO - Last Filed: 02/22/25 21:01> Review of Systems ROS Unobtainable: All systems reviewed & are unremarkable except as noted in HPI and below Hematologic/Lymphatic On Anticoagulants: No Patient History <Tyrell Lopez, DO - Last Filed: 02/22/25 21:01> Medical History Hypertension Strain of left inguinal muscle Current smoker Unilateral inguinal hernia without obstruction Umbilical hernia with obstruction Surgical History Hx of hernia repair (01/18/21) Hx of umbilical hernia repair Family History Father Prostate cancer Daughter Diabetes mellitus Social History marital status: household members: spouse and children lives independently: Yes occupational status: employed Smoking Status: Current every day smoker alcohol intake: current substance use type: marijuana Smoking Status: Current every day smoker tobacco type: cigarettes alcohol intake frequency: holidays/special occasions only Exam <Tyrell Lopez DO - Last Filed: 02/22/25 21:01> Narrative Exam Narrative: GENERAL: [54] year old patient appears stated age. Well-developed patient, in mild distress. HEAD: Atraumatic. Normocephalic. EYES: Pupils equal round and reactive. Extraocular motions intact. No scleral icterus. No injection or drainage. ENT: Nose without bleeding, purulent drainage. Throat without erythema, tonsillar hypertrophy or exudate. Airway patent. NECK: Trachea midline. Non tender CARDIOVASCULAR: Regular rate and rhythm without murmurs, gallops, or rubs. RESPIRATORY: Clear to auscultation. Breath sounds equal bilaterally. No wheezes, rales, or rhonchi. GASTROINTESTINAL: Abdomen soft, non-tender, nondistended. EXTREMITIES: No edema or joint tenderness. BACK: Nontender without deformity or crepitance. No flank tenderness. NEURO: AOx3. GCS 15 nonfocal neuro exam neg pronator drift 5/5 b/l u/e and b/l l/e SKIN: No rash or erythema of visible areas Initial Vital Signs Initial Vital Signs: Vital Signs Temperature 97.3 F L 02/22/25 16:20 Pulse Rate 62 02/22/25 16:20 Respiratory Rate 14 02/22/25 16:20 Blood Pressure 155/92 H 02/22/25 16:20 Pulse Oximetry 100 02/22/25 16:20 Oxygen Delivery Method Room Air 02/22/25 16:20 <Ant Kelsey MD - Last Filed: 02/23/25 19:55> Initial Vital Signs Initial Vital Signs: Vital Signs Temperature 97.3 F L 02/22/25 16:20 Pulse Rate 62 02/22/25 16:20 Respiratory Rate 14 02/22/25 16:20 Blood Pressure 155/92 H 02/22/25 16:20 Pulse Oximetry 100 02/22/25 16:20 Oxygen Delivery Method Room Air 02/22/25 16:20 Course <Tyrell Lopez DO - Last Filed: 02/22/25 21:01> Orders Ordered: ED Orders 02/23/25 16:07 CT head/brain wo con Stat Discontinued Medications Acetaminophen (Acetaminophen 325 Mg Tablet) 650 mg PO NOW ONE Stop: 02/22/25 21:08 Last Admin: 02/22/25 21:15 Dose: 650 mg Documented By: AIDEN Acetaminophen (Acetaminophen 325 Mg Tablet) 975 mg PO NOW ONE Stop: 02/23/25 06:49 Last Admin: 02/23/25 06:52 Dose: 975 mg Documented By: AIDEN Acetaminophen (Acetaminophen 325 Mg Tablet) 650 mg PO NOW ONE Stop: 02/23/25 11:01 Last Admin: 02/23/25 11:04 Dose: 650 mg Documented By: DANIS Dexamethasone (Dexamethasone 10 Mg/Ml Vial) 10 mg IV NOW ONE Stop: 02/22/25 20:38 Last Admin: 02/22/25 20:43 Dose: 10 mg Documented By: AIDEN Dexamethasone (Dexamethasone 4 Mg/Ml Vial) 4 mg IV NOW ONE Stop: 02/23/25 17:06 Last Admin: 02/23/25 17:29 Dose: 4 mg Documented By: RADHA Levetiracetam 1,000 mg/ Sodium (Chloride) 110 mls @ 440 mls/hr IV NOW ONE Stop: 02/22/25 20:37 Last Infusion: 02/22/25 21:13 Dose: Infused Documented By: Admin: 02/22/25 20:44 Dose: 440 mls/hr Documented By: AIDEN Levetiracetam 500 mg/ Sodium (Chloride) 105 mls @ 420 mls/hr IV NOW ONE Stop: 02/23/25 17:06 Last Infusion: 02/23/25 17:58 Dose: Infused Documented By: Admin: 02/23/25 17:29 Dose: 420 mls/hr Documented By: RADHA Levetiracetam (Levetiracetam 250 Mg Tablet) 500 mg PO NOW ONE Stop: 02/23/25 10:17 Last Admin: 02/23/25 11:04 Dose: 500 mg Documented By: DANIS Vital Signs Vital signs: Vital Signs - 8 hr 02/23/25 14:07 02/23/25 14:08 02/23/25 14:08 Temperature Pulse Rate 69 68 Respiratory Rate 16 Blood Pressure 135/79 135/79 Pulse Oximetry 99 98 02/23/25 16:17 02/23/25 16:18 02/23/25 16:18 Temperature Pulse Rate 76 76 Respiratory Rate Blood Pressure 132/76 Pulse Oximetry 98 98 02/23/25 16:43 02/23/25 17:00 02/23/25 17:30 Temperature Pulse Rate 77 79 75 Respiratory Rate 23 20 18 Blood Pressure Pulse Oximetry 96 97 97 02/23/25 18:00 02/23/25 18:30 02/23/25 18:54 Temperature Pulse Rate 69 72 Respiratory Rate 18 19 Blood Pressure 136/78 Pulse Oximetry 98 99 02/23/25 18:54 02/23/25 18:57 Temperature 97.1 F L Pulse Rate 65 Respiratory Rate Blood Pressure Pulse Oximetry 99 <Ant Kelsey MD - Last Filed: 02/23/25 19:55> Orders Ordered: ED Orders 02/23/25 16:07 CT head/brain wo con Stat Discontinued Medications Acetaminophen (Acetaminophen 325 Mg Tablet) 650 mg PO NOW ONE Stop: 02/22/25 21:08 Last Admin: 02/22/25 21:15 Dose: 650 mg Documented By: AIDEN Acetaminophen (Acetaminophen 325 Mg Tablet) 975 mg PO NOW ONE Stop: 02/23/25 06:49 Last Admin: 02/23/25 06:52 Dose: 975 mg Documented By: AIDEN Acetaminophen (Acetaminophen 325 Mg Tablet) 650 mg PO NOW ONE Stop: 02/23/25 11:01 Last Admin: 02/23/25 11:04 Dose: 650 mg Documented By: DANIS Dexamethasone (Dexamethasone 10 Mg/Ml Vial) 10 mg IV NOW ONE Stop: 02/22/25 20:38 Last Admin: 02/22/25 20:43 Dose: 10 mg Documented By: AIDEN Dexamethasone (Dexamethasone 4 Mg/Ml Vial) 4 mg IV NOW ONE Stop: 02/23/25 17:06 Last Admin: 02/23/25 17:29 Dose: 4 mg Documented By: RADHA Levetiracetam 1,000 mg/ Sodium (Chloride) 110 mls @ 440 mls/hr IV NOW ONE Stop: 02/22/25 20:37 Last Infusion: 02/22/25 21:13 Dose: Infused Documented By: Admin: 02/22/25 20:44 Dose: 440 mls/hr Documented By: AIDEN Levetiracetam 500 mg/ Sodium (Chloride) 105 mls @ 420 mls/hr IV NOW ONE Stop: 02/23/25 17:06 Last Infusion: 02/23/25 17:58 Dose: Infused Documented By: Admin: 02/23/25 17:29 Dose: 420 mls/hr Documented By: RADHA Levetiracetam (Levetiracetam 250 Mg Tablet) 500 mg PO NOW ONE Stop: 02/23/25 10:17 Last Admin: 02/23/25 11:04 Dose: 500 mg Documented By: DANIS Vital Signs Vital signs: Vital Signs - 8 hr 02/23/25 14:07 02/23/25 14:08 02/23/25 14:08 Temperature Pulse Rate 69 68 Respiratory Rate 16 Blood Pressure 135/79 135/79 Pulse Oximetry 99 98 02/23/25 16:17 02/23/25 16:18 02/23/25 16:18 Temperature Pulse Rate 76 76 Respiratory Rate Blood Pressure 132/76 Pulse Oximetry 98 98 02/23/25 16:43 02/23/25 17:00 02/23/25 17:30 Temperature Pulse Rate 77 79 75 Respiratory Rate 23 20 18 Blood Pressure Pulse Oximetry 96 97 97 02/23/25 18:00 02/23/25 18:30 02/23/25 18:54 Temperature Pulse Rate 69 72 Respiratory Rate 18 19 Blood Pressure 136/78 Pulse Oximetry 98 99 02/23/25 18:54 02/23/25 18:57 Temperature 97.1 F L Pulse Rate 65 Respiratory Rate Blood Pressure Pulse Oximetry 99 MDM - Neuro Symptoms/Deficit <Tyrell Lopez, DO - Last Filed: 02/22/25 21:01> Lab Data 02/22/25 16:45 02/22/25 16:45 Labs: Lab Results 02/22/25 02/22/25 02/22/25 Range/Units 16:45 17:24 17:45 WBC 7.6 (4.5-11.0) X10^3/uL RBC 4.73 (4.5-5.9) X10^6/uL Hgb 15.1 (13.5-17.5) g/dL Hct 43.8 (41-53) % MCV 92.7 (80-100) fL MCH 32.0 (26-34) PG MCHC 34.5 (30-36) % RDW 13.3 (11.6-14.8) % Plt Count 217 (150-400) X10^3/uL Neut % (Auto) 62.9 (50-75) % Lymph % (Auto) 24.4 L (25-40) % Newberry % (Auto) 7.6 (3-14) % Eos % (Auto) 4.4 H (2-4) % Baso % (Auto) 0.7 (0-2) % Neut # (Auto) 4800 (6706-3721) /uL Lymph # (Auto) 1900 (5568-7413) /uL [place]berry # (Auto) 600 (0-900) /uL Eos # (Auto) 300 (0-450) /uL Baso # (Auto) 100 (0-100) /uL Sodium 139 (137-145) mmol/L Potassium 4.0 (3.4-5.1) mmol/L Chloride 103 (98-107) mmol/L Carbon Dioxide 27 (22-32) mmol/L BUN 16 (9-20) mg/dL Creatinine 0.84 (0.66-1.25) mg/dL Estimated GFR > 60 (>60) mL/min BUN/Creatinine Ratio 19.0 (6-22) Glucose 88 (70-100) mg/dL Calcium 9.1 (8.4-10.2) mg/dL Total Bilirubin 0.5 (0.2-1.3) mg/dL AST 26 (17-59) IU/L ALT 27 (<50) IU/L Alkaline Phosphatase 59 (38-126) U/L Ammonia < 9 L (9-30) umol/L Total Protein 7.2 (6.3-8.2) g/dL Albumin 4.4 (3.5-5.0) g/dL Globulin 2.8 (1.7-4.1) g/dL Albumin/Globulin Ratio 1.6 (1.0-2.8) Ur Bilirubin Confirm Positive H (Negative) U Opiates 300ng/mL cut Negative (Negative) Ur Oxycodone Screen Negative (Negative) Urine Methadone Screen Negative (Negative) Ur Barbiturates Screen Negative (Negative) U Tricyclic Antidepress Negative (Negative) Ur Phencyclidine Scrn Negative (Negative) Ur Amphetamines Screen Negative (Negative) U Methamphetamines Scrn Negative (Negative) Ur MDMA Scrn (Ecstasy) Negative (Negative) U Benzodiazepines Scrn Negative (Negative) Urine Cocaine Screen Negative (Negative) U Marijuana (THC) Screen Negative (Negative) Urine pH Normal (Normal) Urine Specific [place] Normal (Normal) Ur Creatinine Normal (Normal) Urine Dip Bedside Urine Glucose Negative Bedside Urine Bilirubin + 1 Bedside Urine Ketone - Negative Urine Specific [place] 1.025 Bedside Urine Occult Blood - Negative Bedside Urine pH 6.0 Bedside Urine Protein +/- 15 Bedside Urine Urobilinogen - Negative Bedside Urine Nitrite - Negative Bedside Urine Leukocytes - Negative Esterase Imaging Data CT scan - head: Radiologist's Impression: [address] [address] [address] Scan Report Signed Patient: Lang Cruz MR#: [id number] : 1970 Acct:[id number] Age/Sex: 54 / M Date of Service: 02/22/25 Loc: ED Accession Number: [id number] Procedure: CT head/brain wo con Ordering Provider: Ant Kelsey MD PROCEDURE: CT HEAD/BRAIN WO CON INDICATIONS: AMS x10 days TECHNIQUE: Noncontrast 4.5 mm thick angled axial sections acquired from the foramen magnum to the vertex, with coronal and sagittal reformats. For radiation dose reduction, the following was used: automated exposure control, adjustment of mA and/or kV according to patient size. COMPARISON: None. FINDINGS: Image quality: Diagnostic. CSF spaces: Basal cisterns are patent. No extra-axial fluid collections. The ventricles are symmetric in size and shape. Brain: There is suggestion of a 4 x 3.2 x 3.9 cm hypodense mass in right frontal lobe with extensive surrounding vasogenic edema and mild mass effect on the right lateral ventricle and up to 4 mm midline shift to the left. There is cerebral volume loss for age, with resultant ventricular and sulcal prominence. There are periventricular and deep white matter chronic small vessel ischemic changes. There is intracranial internal carotid artery atherosclerosis. Skull and face: Calvarium and visualized facial bones appear intact, without suspicious lesions. Sinuses: Visualized sinuses and mastoids are clear. IMPRESSION: 1. Finding is suggestive of a 4 x 3.2 x 3.9 cm hypodense mass involving right frontal lobe with extensive surrounding vasogenic edema, mass effect on right lateral ventricle and up to 4 mm midline shift to the left. Infectious process such as intracranial abscess collection is also in the differential diagnosis. MRI of the brain without and with contrast can be done for further evaluation 2. No evidence of acute intracranial bleed. Dictated by: Hollis Hall M.D. on 02/22/2025 at 17:46 Approved by: Hollis Hall M.D. on 02/22/2025 at 17:[address] [address] XRay Report Signed Patient: Lang Cruz MR#: [id number] : 1970 Acct:[id number] Age/Sex: 54 / M Date of Service: 02/22/25 Loc: ED Accession Number: [id number] Procedure: XR chest 1V Ordering Provider: Ant Kelsey MD PROCEDURE: XR CHEST 1V INDICATIONS: altered mental status TECHNIQUE: One view of the chest was acquired. COMPARISON: [facility], , XR CHEST 1V, 07/15/2024, 17:15. FINDINGS: Surgical changes and devices: None. Lungs and pleura: Lungs are clear. No pleural effusions or pneumothorax. Mediastinum: Mediastinal contours appear normal. Heart size is normal. Bones and chest wall: No suspicious bony lesions. Overlying soft tissues appear unremarkable. IMPRESSION: No acute cardiothoracic process. Dictated by: Jony Finn M.D. on 02/22/2025 at 16:57 Approved by: Jony Finn M.D. on 02/22/2025 at 16:5 MDM Narrative Medical decision making narrative: All lab work CT scan vital signs nurse triage note medication list old records all reviewed. Patient is neurologically intact nonfocal neuro exam GCS of 15 I spoken to Neurosurgery at [facility] Dr. Suzette Pardo who has advised to give Keppra a 1000 mg and 10 of Decadron IV x1 he has been accepted for transfer to [facility]. Differential diagnosis includes CVA subarachnoid hemorrhage epidural hemorrhage tumor or mass. <Ant Kelsey MD - Last Filed: 02/23/25 19:55> Lab Data Labs: Lab Results 02/22/25 02/22/25 02/22/25 Range/Units 16:45 17:24 17:45 WBC 7.6 (4.5-11.0) X10^3/uL RBC 4.73 (4.5-5.9) X10^6/uL Hgb 15.1 (13.5-17.5) g/dL Hct 43.8 (41-53) % MCV 92.7 (80-100) fL MCH 32.0 (26-34) PG MCHC 34.5 (30-36) % RDW 13.3 (11.6-14.8) % Plt Count 217 (150-400) X10^3/uL Neut % (Auto) 62.9 (50-75) % Lymph % (Auto) 24.4 L (25-40) % Newberry % (Auto) 7.6 (3-14) % Eos % (Auto) 4.4 H (2-4) % Baso % (Auto) 0.7 (0-2) % Neut # (Auto) 4800 (6438-4080) /uL Lymph # (Auto) 1900 (4989-0192) /uL Newberry # (Auto) 600 (0-900) /uL Eos # (Auto) 300 (0-450) /uL Baso # (Auto) 100 (0-100) /uL Sodium 139 (137-145) mmol/L Potassium 4.0 (3.4-5.1) mmol/L Chloride 103 (98-107) mmol/L Carbon Dioxide 27 (22-32) mmol/L BUN 16 (9-20) mg/dL Creatinine 0.84 (0.66-1.25) mg/dL Estimated GFR > 60 (>60) mL/min BUN/Creatinine Ratio 19.0 (6-22) Glucose 88 (70-100) mg/dL Calcium 9.1 (8.4-10.2) mg/dL Total Bilirubin 0.5 (0.2-1.3) mg/dL AST 26 (17-59) IU/L ALT 27 (<50) IU/L Alkaline Phosphatase 59 (38-126) U/L Ammonia < 9 L (9-30) umol/L Total Protein 7.2 (6.3-8.2) g/dL Albumin 4.4 (3.5-5.0) g/dL Globulin 2.8 (1.7-4.1) g/dL Albumin/Globulin Ratio 1.6 (1.0-2.8) Ur Bilirubin Confirm Positive H (Negative) U Opiates 300ng/mL cut Negative (Negative) Ur Oxycodone Screen Negative (Negative) Urine Methadone Screen Negative (Negative) Ur Barbiturates Screen Negative (Negative) U Tricyclic Antidepress Negative (Negative) Ur Phencyclidine Scrn Negative (Negative) Ur Amphetamines Screen Negative (Negative) U Methamphetamines Scrn Negative (Negative) Ur MDMA Scrn (Ecstasy) Negative (Negative) U Benzodiazepines Scrn Negative (Negative) Urine Cocaine Screen Negative (Negative) U Marijuana (THC) Screen Negative (Negative) Urine pH Normal (Normal) Urine Specific [place] Normal (Normal) Ur Creatinine Normal (Normal) Urine Dip Bedside Urine Glucose Negative Bedside Urine Bilirubin + 1 Bedside Urine Ketone - Negative Urine Specific [place] 1.025 Bedside Urine Occult Blood - Negative Bedside Urine pH 6.0 Bedside Urine Protein +/- 15 Bedside Urine Urobilinogen - Negative Bedside Urine Nitrite - Negative Bedside Urine Leukocytes - Negative Esterase Imaging Data CT chest abdomen and pelvis: Radiologist's Impression: [address] [address] [address] Scan Report Signed Patient: Lang Cruz MR#: [id number] : 1970 Acct:[id number] Age/Sex: 54 / M Date of Service: 02/23/25 Loc: ED Accession Number: [id number] Procedure: CT chest abd pel w con Ordering Provider: Ant Kelsey MD PROCEDURE: CT CHEST ABD PEL W CON INDICATIONS: brain mass, eval for primary cancers TECHNIQUE: After the administration of intravenous contrast, 5 mm thick sections acquired from the lung apices to the symphysis. 5 mm coronal and sagittal reformats were performed, with additional 7 mm MIP reformats through the lungs. For radiation dose reduction, the following was used: automated exposure control, adjustment of mA and/or kV according to patient size. COMPARISON: [facility], CT, CT LUNG LOW DOSE SCREENING, 08/21/2024, 9:00. FINDINGS: Image quality: Mild respiratory motion. Diagnostic information is obtained. CHEST: Lower Neck: No enlarged lymph nodes. Thyroid: No thyroid nodules which require sonographic follow up, per consensus guidelines. Axillae: No enlarged lymph nodes. Chest Wall: Unremarkable. Lungs and Pleura: No pneumothorax or pleural effusions. Mild centrilobular and paraseptal emphysema. No acute consolidation. No new or enlarging pulmonary nodule. Stable juxta-fissural micronodules in both lungs. Heart: Heart size is normal. No pericardial effusion. Thoracic Vessels: The aorta and pulmonary arteries demonstrate normal size. Mediastinum and Marissa: No enlarged lymph nodes. Esophagus: No wall thickening. No hiatal hernia. ABDOMEN: Liver: No solid mass. Gallbladder: No radiopaque gallstones or wall thickening. Biliary ducts: No biliary dilation. Pancreas: No ductal dilation. Spleen: Size is within normal limits. Adrenal Glands: No adrenal nodules. Kidneys and Ureters: No hydronephrosis. No solid mass. No complex renal cystic lesion which requires follow up. Stomach and Bowel: Normal colonic caliber, without significant wall thickening. Peritoneum: No abnormal intraperitoneal fluid. No free air. Ventral Wall: No significant ventral hernia. Abdominal Nodes: No retroperitoneal or mesenteric adenopathy by size criteria. Vessels: Aorta and inferior vena cava are normal in size. PELVIS: Pelvic Organs: Unremarkable. Bladder: No bladder wall thickening, accounting for underdistention. Pelvic Nodes: No enlarged lymph nodes. Miscellaneous: No inguinal hernias are seen. Bones: No aggressive osseous abnormality. IMPRESSION: 1. No CT evidence of primary malignancy or metastatic disease in the chest, abdomen, or pelvis. 2. Stable pulmonary micronodules. No suspicious new or enlarging pulmonary nodule. Approved by: Jarred Marrufo M.D. on 02/23/2025 at 10:39 MRI brain without and with contrast: Radiologist's Impression: Close Brain MRI (Signed) Tom Fan - 02/23/25 Chest/Abdomen/Pelvis CT (Signed) Jarred Marrufo - 02/23/[address] (Signed) Hollis Hall - 02/22/25 Chest X-Ray (Signed) Jony Finn - 02/22/25 [place] [address] Magnetic Resonance Report Signed Patient: Lang Cruz MR#: [id number] : 1970 Acct:[id number] Age/Sex: 54 / M Date of Service: 02/23/25 Loc: ED Accession Number: [id number] Procedure: MR head/brain wo/w con Ordering Provider: Ant Kelsey MD PROCEDURE: MR HEAD/BRAIN WO/W CON INDICATIONS: Brain mass request for MRI without and with contrast. TECHNIQUE: Noncontrast axial T1 spin echo, axial T2 fast spin echo, sagittal and axial FLAIR, coronal T2 fast spin echo, axial gradient echo, axial diffusion and ADC through the brain. After the administration of contrast, axial and coronal and sagittal 3D VIBE or T1 spin echo with fat saturation through the brain. COMPARISON: None. FINDINGS: Image quality: Excellent. CSF Spaces: There is a large right frontal mass centered in the deep white matter with significant vasogenic edema resulting in significant mass effect on the right lateral ventricle and midline shift measuring 8 mm. Reference axial image 15 of series 7. There is no impending uncal herniation. The ambient cisterns are patent. Brain: Multiple intra-axial masses are present. This includes a large right frontal deep white matter peripherally enhancing lesion measuring approximately 4.4 x 3.1 x 3.6 cm with significant vasogenic edema. Multiple other smaller masses are present. These do not significantly enhance. There are at least 2 right frontal deep white matter masses which are in close proximity to each other with mild vasogenic edema. 1 of these lesions is seen on axial image 17 of series 7 measuring 9 mm. The subjacent 1, more medially, measures 1.1 cm on image 16 of series 7. There is also a posterior right frontal orozco-white junction medial high vertex lesion which is seen on image 21 of series 7. Statistically, this likely represents metastatic disease. Skull and face: Calvarial marrow is normal in signal. Orbits appear normal. Sinuses: Sinuses and mastoids appear clear. IMPRESSION: There are multiple intra-axial brain masses, highly suspicious for metastatic disease. The largest of these lesions, in the right frontal deep white matter is associated with significant vasogenic edema and significant mass effect on the right lateral ventricle and midline shift. Dictated by: Tom Fan M.D. on 02/23/2025 at 11:03 Approved by: Tom Fan M.D. on 02/23/2025 at 11:27 [facility] Narrative Medical decision making narrative: All lab work CT scan vital signs nurse triage note medication list old records all reviewed. Patient is neurologically intact nonfocal neuro exam GCS of 15 I spoken to Neurosurgery at [facility] Dr. Suzette Pardo who has advised to give Keppra a 1000 mg and 10 of Decadron IV x1 he has been accepted for transfer to [facility]. Differential diagnosis includes CVA subarachnoid hemorrhage epidural hemorrhage tumor or mass. 02/23/25, Low Lacy. Sign-out from Dr. Lopez. 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 Spoke with patient who seemed quite cooperative, expressed understanding of need for transfer and intent to transfer when bed available [facility] where neurosurgery consultation is available. No family members present in the room at this time. Assumed interim care. 944, call back from [facility] intake nurse, relaying from Neurosurgery team still awaiting bed assignment there, they would like interim studies to be performed here while awaiting bed opening. They request MRI of the brain without contrast and with contrast. They also request CT chest abdomen and pelvis with IV contrast. These studies will be ordered. Images we will be pushed. Anticipate possible bed after 3:[address] chest abdomen and pelvis, no neoplastic lesions noted. See radiology report MRI brain without and with contrast. Impressions: ?There are multiple intra-axial brain masses, highly suspicious for metastatic disease. The largest of these lesions, in the right frontal deep white matter is associated with significant vasogenic edema and significant mass effect on the right lateral ventricle and midline shift.? See radiology report CT studies and MRI studies transmitted to [facility]. 1500, accepted for transfer, now bed assignment is available, transfer crew we will be available 8:00 p.m. to take patient to [facility]. 1615, noticed the patient seems to have left lower facial droop, no weakness arm or leg, no change in speech. We will repeat CT head noncontrast study. Keep NPO. No seizure or shaking activity noted. at bedside thought that he had a similar facial droop briefly last night that did not seem to be persisting through the day as she has been with him. He denies headache pain. Repeat CT head noncontrast scan done, see radiology report, no significant interval change. We will contact Neurosurgery for any interim recommendations pending transfer that is scheduled for 3 hours for now. 1700, case discussed with [facility] intake, await call back from Neurosurgery Case discussed with Neurosurgery Dr Valencia, advises repeat dose of IV Decadron now at 4 mg, can give another dose of Keppra we will give IV 500 mg. No other therapeutic interventions at this time, transfer as planned in 3 hours when transport available. Discharge Plan Departure Patient Disposition: Home Clinical Impression: Brain mass Prescriptions: No Action amoxicillin-pot clavulanate 875-125 mg tablet 1 tab PO BID Qty: 14 0RF lisinopril 5 mg tablet 5 mg PO DAILY Qty: 90 3RF Referrals: Sanchez Fernandes MD [Primary Care Provider] - Stand Alone Forms: Patient Portal/API/Survey
[2025-02-22] MEDS: DEXAMETHASONE 10 MG/ML VIAL IV (20:43)
[2025-02-22] MEDS: levETIRAcetam 1,000 MG in SODIUM CHLORIDE 0.9% 100 ML 440 MG IV (20:44)
[2025-02-22] MEDS: ACETAMINOPHEN 325 MG TABLET 650 MG PO (21:15)
[2025-02-23] VITALS (27 sets, daily range): BP systolic 105–136; BP diastolic 60–85; PULSE 64–79; RESP 16–23; TEMP 36.2–36.4; O2SAT 94–99
[2025-02-23] MEDS: ACETAMINOPHEN 325 MG TABLET 975 MG PO (06:52)
--- NOTE | 2025-02-23 08:29 | PC.NURSE ---
Intermittent confusion
--- NOTE | 2025-02-23 09:10 | PC.NURSE ---
MD Kelsey stated no mri; stated transfer would do mri
--- NOTE | 2025-02-23 09:50 | DI.CT.S_ITS ---
PROCEDURE: CT CHEST ABD PEL W CON INDICATIONS: brain mass, eval for primary cancers TECHNIQUE: After the administration of intravenous contrast, 5 mm thick sections acquired from the lung apices to the symphysis. 5 mm coronal and sagittal reformats were performed, with additional 7 mm MIP reformats through the lungs. For radiation dose reduction, the following was used: automated exposure control, adjustment of mA and/or kV according to patient size. COMPARISON: [facility], CT, CT LUNG LOW DOSE SCREENING, 08/21/2024, 9:00. FINDINGS: Image quality: Mild respiratory motion. Diagnostic information is obtained. CHEST: Lower Neck: No enlarged lymph nodes. Thyroid: No thyroid nodules which require sonographic follow up, per consensus guidelines. Axillae: No enlarged lymph nodes. Chest Wall: Unremarkable. Lungs and Pleura: No pneumothorax or pleural effusions. Mild centrilobular and paraseptal emphysema. No acute consolidation. No new or enlarging pulmonary nodule. Stable juxta-fissural micronodules in both lungs. Heart: Heart size is normal. No pericardial effusion. Thoracic Vessels: The aorta and pulmonary arteries demonstrate normal size. Mediastinum and Marissa: No enlarged lymph nodes. Esophagus: No wall thickening. No hiatal hernia. ABDOMEN: Liver: No solid mass. Gallbladder: No radiopaque gallstones or wall thickening. Biliary ducts: No biliary dilation. Pancreas: No ductal dilation. Spleen: Size is within normal limits. Adrenal Glands: No adrenal nodules. Kidneys and Ureters: No hydronephrosis. No solid mass. No complex renal cystic lesion which requires follow up. Stomach and Bowel: Normal colonic caliber, without significant wall thickening. Peritoneum: No abnormal intraperitoneal fluid. No free air. Ventral Wall: No significant ventral hernia. Abdominal Nodes: No retroperitoneal or mesenteric adenopathy by size criteria. Vessels: Aorta and inferior vena cava are normal in size. PELVIS: Pelvic Organs: Unremarkable. Bladder: No bladder wall thickening, accounting for underdistention. Pelvic Nodes: No enlarged lymph nodes. Miscellaneous: No inguinal hernias are seen. Bones: No aggressive osseous abnormality. IMPRESSION: 1. No CT evidence of primary malignancy or metastatic disease in the chest, abdomen, or pelvis. 2. Stable pulmonary micronodules. No suspicious new or enlarging pulmonary nodule. Approved by: Jarred Marrufo M.D. on 02/23/2025 at 10:39
--- NOTE | 2025-02-23 09:50 | DI.MRI.S_ITS ---
PROCEDURE: MR HEAD/BRAIN WO/W CON INDICATIONS: Brain mass request for MRI without and with contrast. TECHNIQUE: Noncontrast axial T1 spin echo, axial T2 fast spin echo, sagittal and axial FLAIR, coronal T2 fast spin echo, axial gradient echo, axial diffusion and ADC through the brain. After the administration of contrast, axial and coronal and sagittal 3D VIBE or T1 spin echo with fat saturation through the brain. COMPARISON: None. FINDINGS: Image quality: Excellent. CSF Spaces: There is a large right frontal mass centered in the deep white matter with significant vasogenic edema resulting in significant mass effect on the right lateral ventricle and midline shift measuring 8 mm. Reference axial image 15 of series 7. There is no impending uncal herniation. The ambient cisterns are patent. Brain: Multiple intra-axial masses are present. This includes a large right frontal deep white matter peripherally enhancing lesion measuring approximately 4.4 x 3.1 x 3.6 cm with significant vasogenic edema. Multiple other smaller masses are present. These do not significantly enhance. There are at least 2 right frontal deep white matter masses which are in close proximity to each other with mild vasogenic edema. 1 of these lesions is seen on axial image 17 of series 7 measuring 9 mm. The subjacent 1, more medially, measures 1.1 cm on image 16 of series 7. There is also a posterior right frontal orozco-white junction medial high vertex lesion which is seen on image 21 of series 7. Statistically, this likely represents metastatic disease. Skull and face: Calvarial marrow is normal in signal. Orbits appear normal. Sinuses: Sinuses and mastoids appear clear. IMPRESSION: There are multiple intra-axial brain masses, highly suspicious for metastatic disease. The largest of these lesions, in the right frontal deep white matter is associated with significant vasogenic edema and significant mass effect on the right lateral ventricle and midline shift. Dictated by: Tom Fan M.D. on 02/23/2025 at 11:03 Approved by: Tom Fan M.D. on 02/23/2025 at 11:27
[2025-02-23] MEDS: levETIRAcetam 250 MG TABLET 500 MG PO (11:04)
[2025-02-23] MEDS: ACETAMINOPHEN 325 MG TABLET 650 MG PO (11:04)
--- NOTE | 2025-02-23 11:14 | PC.NURSE ---
Pt reports headache right inbetween eye brows. Pt reports it feels like a squeezing sensation. Pt states he has had difficulty falling asleep. Pt reports decrease focus. Pt states he usually is a go getter but has had a platonic mood and no interest in usual activites. denies numbness/tingling. Pt gait appears unaffected.
--- NOTE | 2025-02-23 15:58 | PC.NURSE ---
Pt tells this RN that her 's right eye and left lip appear different as of last night. With right appearing more closed and droop of the left lower lip. Provider Low made aware.
--- NOTE | 2025-02-23 16:07 | DI.CT.S_ITS ---
PROCEDURE: CT HEAD/BRAIN WO CON INDICATIONS: new facial droop, brain mass noted TECHNIQUE: Noncontrast 4.5 mm thick angled axial sections acquired from the foramen magnum to the vertex, with coronal and sagittal reformats. For radiation dose reduction, the following was used: automated exposure control, adjustment of mA and/or kV according to patient size. COMPARISON: [facility], CT, CT HEAD/BRAIN WO CON, 02/22/2025, 17:28. [facility], CT, CT HEAD/BRAIN WO CON, 04/25/2023, 16:39. [facility], MR, MR HEAD/BRAIN WO/W CON, 02/23/2025, 10:02. FINDINGS: Image quality: Diagnostic. CSF spaces: Basal cisterns are patent. No extra-axial fluid collections. Ventricles are normal in size and shape. Brain: Large right frontal parenchymal mass again seen with extensive surrounding vasogenic edema. Smaller bilateral frontal masses again seen that were better demonstrated on the CT from earlier the same day. Mass effect on the right lateral ventricle again seen with up to 4 mm of leftward midline shift. No new area of vasogenic edema is seen. No acute intracranial hemorrhage. Skull and face: Calvarium and visualized facial bones are intact, without suspicious lesions. Sinuses: Visualized sinuses and mastoids are clear. IMPRESSION: No significant interval change. Large right frontal mass again seen with extensive surrounding vasogenic edema and mass effect on the right lateral ventricle with up to 4 mm midline shift, not significantly changed when compared to the CT from the day prior. Additional smaller bilateral frontal masses are better seen on the recent MRI. Findings may represent metastatic disease versus glioblastoma with areas of varying disease activity. Approved by: Jarred Marrufo M.D. on 02/23/2025 at 16:32
--- NOTE | 2025-02-23 16:40 | PC.NURSE ---
Concurred w/ Margo lara for RN that pt does have facial droop on left side. Pt denies any changes. No other neurological changes from orginally documented baseline.
[2025-02-23] MEDS: DEXAMETHASONE 4 MG/ML VIAL IV (17:29)
[2025-02-23] MEDS: levETIRAcetam 500 MG in SODIUM CHLORIDE 0.9% 100 ML 420 MG IV (17:29)
--- NOTE | 2025-02-23 19:14 | PC.NURSE ---
Attempted report to [facility]; Anamaria at transfer center disconnected call.
--- NOTE | 2025-02-23 19:20 | PC.NURSE ---
report given to ems ([facility] ambulance)
== END 2025-02-23 19:14 | disposition home or self-care (01) ==
PROVIDERS: Emergency Medicine; Emergency Provider Student in an Organized Health Care Education/Training Program; PCP Family Medicine
DX: G93.89 Other specified disorders of brain (principal); R53.1 Weakness; R41.82 Altered mental status, unspecified
CPT/HCPCS: 36415; 70450; 70553; 71045; 71260; 74177; 80053; 80305; 81003; 82140; 85025; 93005; 96365; 96366; 96375; 96376; 99285; A9579; J1100; J1953

== ENCOUNTER → 2025-07-28 09:24 | Outpatient (CLI) | payer OTHER, SELFPAY ==
[2024-07-15 21:16] VITALS: BMI 24.4
--- NOTE | 2025-07-28 09:26 | DI.MRI.S_ITS ---
PROCEDURE: MR HEAD/BRAIN WO/W CON INDICATIONS: GLIOBLASTOMA TECHNIQUE: Noncontrast axial T1 spin echo, axial T2 fast spin echo, sagittal and axial FLAIR, coronal T2 fast spin echo, axial gradient echo, axial diffusion and ADC through the brain. After the administration of contrast, axial and coronal and sagittal 3D VIBE or T1 spin echo with fat saturation through the brain. COMPARISON: [facility], MR, MR HEAD/BRAIN WO/W CON, 02/23/2025, 10:02. [facility], MR, MR BRAIN WITH/WITHOUT CONTRAST, 05/10/2025, 21:36. FINDINGS: Image quality: Excellent. CSF Spaces: Basal cisterns are patent. No extra-axial fluid collections. Ventricles are normal in size and shape. Brain: Again seen mass centered within the right medial frontal lobe which is decreased in size compared to prior measuring approximately 2.2 x 3.1 x 3.7 cm, previously 3.9 x 4.0 x 7.5 cm. Previously seen extension across midline is no longer appreciated. There is significant decreased enhancement with at most minimal peripheral enhancement. Surrounding T2/FLAIR hyperintense signal is decreased. Satellite lesion within the right posterior frontal lobe is similar in size, however demonstrates no significant enhancement with similar FLAIR hyperintense signal. The previously seen 4 mm lesion lateral to this is not appreciated, however associated FLAIR hyperintense signal is seen. Left frontal satellite lesions are likely similar in size, however demonstrates significantly decreased enhancement with similar FLAIR hyperintense signal. No midline shift. No intracranial bleeds. The brainstem appears normal. Diffusion-weighted images demonstrate no acute infarct. No chronic ischemic insults. Normal intravascular flow voids are present. Skull and face: Calvarial marrow is normal in signal. Orbits appear normal. Sinuses: Small left maxillary sinus air-fluid level. Sinuses and mastoids otherwise appear clear. IMPRESSION: Largest lesion within the right frontal lobe is decreased in size with significant decreased enhancement and improvement in surrounding T2/FLAIR hyperintense signal. This lesion no longer crosses midline. Other satellite lesions also demonstrate significantly decreased enhancement with similar surrounding T2/FLAIR hyperintense signal. No significant midline shift is appreciated. Dictated by: Kirk Medina M.D. on 07/28/2025 at 10:32 Approved by: Kirk Medina M.D. on 07/28/2025 at 10:42
== END ==
PROVIDERS: PCP Family Medicine; Referring Provider Internal Medicine Hematology & Oncology; Visit Provider Internal Medicine Hematology & Oncology
DX: C71.1 Malignant neoplasm of frontal lobe (principal)
CPT/HCPCS: 70553; A9579

== ENCOUNTER 2025-08-29 18:49 | Emergency (ER) | payer OTHER, SELFPAY ==
[2024-07-15 21:16] VITALS: BMI 24.4
[2025-08-29] VITALS (14 sets, daily range): BP systolic 102–111; BP diastolic 68–81; PULSE 76–97; RESP 16–20; TEMP 36.9; O2SAT 94–98; BMI 24.4
[2025-08-29 19:41] LABS: Add Manual Diff / Slide Review NO; Hematocrit 41.9 % (41-53); Hemoglobin 14.4 g/dL (13.5-17.5); Lymphocytes Absolute Auto 3200 /uL (1100-4500); Mean Corpuscular HGB Conc 34.4 % (30-36); Mean Corpuscular Hemoglobin 34.8 PG (26-34); Mean Corpuscular Volume 101.2 fL (80-100); Platelet Count 275 X10^3/uL (150-400)
[2025-08-29 19:45] LABS: Alanine Aminotransferase 35 IU/L (<50); Albumin 4.2 g/dL (3.5-5.0); Albumin Globulin Ratio 1.6 (1.0-2.8); Alkaline Phosphatase 61 U/L (38-126); Blood Urea Nitrogen 15 mg/dL (9-20); Calcium 9.7 mg/dL (8.4-10.2); Carbon Dioxide 23 mmol/L (22-32); Chloride 102 mmol/L (98-107); Estimated Glomerular Filt Rate > 60 mL/min (>60); Globulin 2.6 g/dL (1.7-4.1); Glucose 117 mg/dL (70-99); HEMOLYSIS < 15 (0-50); Potassium 3.6 mmol/L (3.4-5.1); Sodium 135 mmol/L (137-145); Total Protein 6.8 g/dL (6.3-8.2)
[2025-08-29 19:50] LABS: Lactate (Lactic Acid) 1.8 mmol/L (0.7-2.1)
--- NOTE | 2025-08-29 21:28 | ED_ITS ---
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 oncology where he was formally diagnosed. He was told that the tumor is inoperable. Patient currently is on immunotherapy and is supposed to get another treatment, now up here soon. He is here because he had minute long episode of a seizure-like activity where he was unresponsive and shaking with a postictal state briefly. Here upon evaluation, he is neurologically stable, GCS score 15, nonfocal neuro exam. He is currently getting treatment over at [facility] oncology but also sees [facility] neuro oncology. Related Data Previous Rx's ?Medication ?Instructions ?Recorded lisinopril 5 mg tablet 5 mg PO DAILY #90 tabs 12/14 amoxicillin 875 mg-potassium 1 tab PO BID #14 tabs 04/11 clavulanate 125 mg tablet Allergies Allergy/AdvReac Type Severity Reaction Status Date / Time No Known Drug Allergies Allergy Verified 08/29/25 18:59 Review of Systems Review of Systems ROS Unobtainable: All systems reviewed & are unremarkable except as noted in HPI and below Patient History Medical History Hypertension Strain of left inguinal muscle Current smoker Unilateral inguinal hernia without obstruction Umbilical hernia with obstruction Surgical History Hx of hernia repair (01/18/21) Hx of umbilical hernia repair Family History Father Prostate cancer Daughter Diabetes mellitus Social History marital status: household members: spouse and children lives independently: Yes occupational status: employed Smoking Status: Former smoker alcohol intake: current substance use type: marijuana Smoking Status: Former smoker tobacco type: cigarettes alcohol intake frequency: holidays/special occasions only Exam Narrative Exam Narrative: General: Patient appears to be in no acute distress, acting appropriately Head: normocephalic, atraumatic, HEENT: Pupils equal round reactive, eyes tracking well, neck supple, no JVD Heart: regular rate and rhythm, no murmurs, rubs, or gallops heard Lungs: clear to auscultation, no adventitious sounds Abdomen: soft , nontender, nondistended, positive bowel sounds Neurological: no focal neurological signs, moving all extremities well, alert and oriented x3, Psych: good judgment ,good insight, mood is normal. Initial Vital Signs Initial Vital Signs: Vital Signs Pulse Rate 97 H 08/29/25 18:54 Pulse Oximetry 95 08/29/25 18:54 Course Orders Ordered: ED Orders 08/29/25 18:45 Complete Blood Count AUTO DIFF Stat Comprehensive Metabolic Panel Stat Lactate (Lactic Acid) Stat 08/29/25 21:29 CT head/brain wo con Stat Discontinued Medications Lactated Ringer's (Lactated Ringers) 1,000 mls @ 1,000 mls/hr IV BOLUS ONE Stop: 08/29/25 22:28 Last Admin: 08/29/25 21:41 Dose: Not Given Documented By: MOLLY Sodium Chloride (Normal Saline 0.9%) 1,000 mls @ 1,000 mls/hr IV BOLUS ONE Stop: 08/29/25 22:32 Last Infusion: 08/29/25 23:41 Dose: Infused Documented By: Admin: 08/29/25 21:41 Dose: 1,000 mls/hr Documented By: Harleen Reevaluation(s) Reevaluation #1: Upon re-evaluation, patient remains neurologically stable. Consultations Consultation #1: consultation with Dr. Jony navarrete who accepted an ed to ed transfer for patient to [facility] Vital Signs Vital signs: Vital Signs - 8 hr 08/29/25 18:54 08/29/25 18:55 08/29/25 18:55 Temperature Pulse Rate 97 H 92 H Respiratory Rate Blood Pressure 102/72 Pulse Oximetry 95 95 Oxygen Delivery Method 08/29/25 18:59 08/29/25 19:00 08/29/25 19:00 Temperature 98.4 F Pulse Rate 89 92 H Respiratory Rate 18 Blood Pressure 110/74 110/74 Pulse Oximetry 98 95 Oxygen Delivery Method Room Air 08/29/25 19:30 08/29/25 19:30 08/29/25 20:00 Temperature Pulse Rate 93 H Respiratory Rate Blood Pressure 111/81 103/73 Pulse Oximetry 94 Oxygen Delivery Method 08/29/25 20:00 08/29/25 20:30 08/29/25 20:30 Temperature Pulse Rate 91 H 88 Respiratory Rate 20 Blood Pressure 103/79 Pulse Oximetry 94 97 Oxygen Delivery Method Room Air 08/29/25 21:00 08/29/25 21:00 08/29/25 21:30 Temperature Pulse Rate 85 84 Respiratory Rate Blood Pressure 107/76 Pulse Oximetry 94 96 Oxygen Delivery Method 08/29/25 21:30 08/29/25 22:08 08/29/25 22:30 Temperature Pulse Rate 83 78 Respiratory Rate 16 Blood Pressure 104/74 Pulse Oximetry 97 95 Oxygen Delivery Method 08/29/25 22:37 08/29/25 22:37 08/29/25 23:00 Temperature Pulse Rate 78 Respiratory Rate 16 Blood Pressure 104/68 104/75 Pulse Oximetry 95 Oxygen Delivery Method Room Air 08/29/25 23:00 08/29/25 23:30 08/29/25 23:30 Temperature Pulse Rate 76 76 Respiratory Rate 18 Blood Pressure 109/76 Pulse Oximetry 98 97 Oxygen Delivery Method MDM - Seizure Lab Data 08/29/25 18:45 08/29/25 18:45 Labs: Lab Results 08/29/25 Range/Units 18:45 WBC 8.8 (4.5-11.0) X10^3/uL RBC 4.14 L (4.5-5.9) X10^6/uL Hgb 14.4 (13.5-17.5) g/dL Hct 41.9 (41-53) % MCV 101.2 H (80-100) fL MCH 34.8 H (26-34) PG MCHC 34.4 (30-36) % RDW 13.4 (11.6-14.8) % Plt Count 275 (150-400) X10^3/uL Neut % (Auto) 49.4 L (50-75) % Lymph % (Auto) 36.4 (25-40) % [place] % (Auto) 11.6 (3-14) % Eos % (Auto) 2.2 (2-4) % Baso % (Auto) 0.4 (0-2) % Neut # (Auto) 4300 (3844-3331) /uL Lymph # (Auto) 3200 (4575-1372) /uL [place] # (Auto) 1000 H (0-900) /uL Eos # (Auto) 200 (0-450) /uL Baso # (Auto) 0 (0-100) /uL Sodium 135 L (137-145) mmol/L Potassium 3.6 (3.4-5.1) mmol/L Chloride 102 (98-107) mmol/L Carbon Dioxide 23 (22-32) mmol/L BUN 15 (9-20) mg/dL Creatinine 1.27 H (0.66-1.25) mg/dL Estimated GFR > 60 (>60) mL/min BUN/Creatinine Ratio 11.8 (6-22) Glucose 117 H (70-99) mg/dL Lactate 1.8 (0.7-2.1) mmol/L Calcium 9.7 (8.4-10.2) mg/dL Total Bilirubin 0.3 (0.2-1.3) mg/dL AST 38 (17-59) IU/L ALT 35 (<50) IU/L Alkaline Phosphatase 61 (38-126) U/L Total Protein 6.8 (6.3-8.2) g/dL Albumin 4.2 (3.5-5.0) g/dL Globulin 2.6 (1.7-4.1) g/dL Albumin/Globulin Ratio 1.6 (1.0-2.8) Imaging Data CT scan - head: Radiologist's Impression: Significantly decreased size of right frontal mass with significant improvement in edema. Foci of high density are seen along the periphery of the lesion which are overall nonspecific. Differential includes treatment related changes including calcifications and old blood product, hemorrhage cannot be excluded. Recommend short-term follow-up CT head in 4 hours to ensure stability. MDM Narrative Medical decision making narrative: 54-year-old male with a history of glioblastoma multiform comes in with seizure- like activity. Patient is neurologically stable at this point but the CT of the head shows potential bleed from this tumor. Patient was automatically accepted for transfer to ED to [place] for further evaluation by Neurosurgery. Discharge Plan Departure Patient Disposition: [facility] Clinical Impression: Intracranial hemorrhage Prescriptions: No Action amoxicillin-pot clavulanate 875-125 mg tablet 1 tab PO BID Qty: 14 0RF lisinopril 5 mg tablet 5 mg PO DAILY Qty: 90 3RF Referrals: Sanchez Fernandes MD [Primary Care Provider, Family Practice]
--- NOTE | 2025-08-29 21:29 | DI.CT.S_ITS ---
PROCEDURE: CT HEAD/BRAIN WO CON INDICATIONS: seizure TECHNIQUE: Noncontrast 4.5 mm thick angled axial sections acquired from the foramen magnum to the vertex, with coronal and sagittal reformats. For radiation dose reduction, the following was used: automated exposure control, adjustment of mA and/or kV according to patient size. COMPARISON: [facility], MR, MR HEAD/BRAIN WO/W CON, 07/28/2025, 9:30. [facility], CT, CT HEAD/BRAIN WO CON, 02/23/2025, 16:15. FINDINGS: Image quality: Diagnostic. CSF spaces: Basal cisterns are patent. No extra-axial fluid collections. Ventricles are normal in size and shape. Brain: Significantly decreased size of right frontal mass and surrounding edema. Scattered foci of high density are seen along the periphery of the right frontal lesion. No midline shift. [place]ham-white matter interface is normal. Skull and face: Calvarium and visualized facial bones are intact, without suspicious lesions. Sinuses: Visualized sinuses and mastoids are clear. IMPRESSION: Significantly decreased size of right frontal mass with significant improvement in edema. Foci of high density are seen along the periphery of the lesion which are overall nonspecific. Differential includes treatment related changes including calcifications and old blood product, hemorrhage cannot be excluded. Recommend short-term follow-up CT head in 4 hours to ensure stability. Dictated by: Kirk Medina M.D. on 08/29/2025 at 22:10 Approved by: Kirk Medina M.D. on 08/29/2025 at 22:14
[2025-08-29] MEDS: SODIUM CHLORIDE 0.9% 1,000 ML 1000 ML IV (21:41)
[2025-08-30] VITALS: BP 103/69; PULSE 78; O2SAT 97
== END 2025-08-30 00:20 | disposition short-term general hospital (02) ==
PROVIDERS: Emergency Provider Family Medicine; PCP Family Medicine
DX: I62.9 Nontraumatic intracranial hemorrhage, unspecified (principal); C71.9 Malignant neoplasm of brain, unspecified
CPT/HCPCS: 70450; 80053; 83605; 85025; 96360; 96361; 99283; 99284; J7030